=== PATIENT | male | born 1945 | race Caucasian/White ===

== ENCOUNTER 2016-11-14 11:39 | Inpatient (IN) | payer BC, OTHER ==
[2016-11-14 11:51] VITALS: BMI 29.0
[2016-11-14] MEDS ORDERED: dilTIAZem HCL 50 MG/10 ML - 10 ML VIAL ONE (12:10)
[2016-11-14] MEDS ORDERED: dilTIAZem HCL 50 MG/10 ML - 10 ML VIAL IVPUSH ONE ×3 (12:14→15:41)
--- NOTE | 2016-11-14 12:15 | PDOC ---
Attending Attestation - Resident Resident Name: Fernando Mustafa - ED Attending Attestation I have performed the following: I have examined & evaluated the patient, The case was reviewed & discussed with the resident, I agree w/resident's findings & plan, Exceptions are as noted - HPI HPI: 11/14/16 15:28 71-year-old male history HTN, DM presents from urgent care with chest pain, shortness of breath and an abnormal EKG. On arrival the patient is in A. fib with RVR to 160s. Patient reports sternal chest pain that radiates up to his jaw bilaterally. He states the symptoms began yesterday at after he ate dinner and became worse this morning. He has never had similar symptoms before denies a history of atrial fibrillation. Pt states he took ASA "500mg" this morning. Denies fevers, chills, focal weakness or numbness, abdominal pain, nausea, vomiting, diarrhea, diaphoresis, lower extremity edema. - Physicial Exam PE: 11/14/16 15:30 GENERAL: Awake, alert, and fully oriented, in no acute distress HEAD: No signs of trauma EYES: PERRLA, EOMI, sclera anicteric, conjunctiva clear ENT: Auricles normal inspection, hearing grossly normal, nares patent, oropharynx clear without exudates. Moist mucosa NECK: Normal ROM, supple, no lymphadenopathy, JVD, or masses LUNGS: Breath sounds equal, clear to auscultation bilaterally. No wheezes, and no crackles HEART: tachy to 166, irregularly irregular, normal S1 and S2, no murmurs, rubs or gallops ABDOMEN: Soft, nontender, normoactive bowel sounds. No guarding, no rebound. No masses EXTREMITIES: Normal range of motion, no edema. No clubbing or cyanosis. No cords, erythema, or tenderness NEUROLOGICAL: Normal speech, cranial nerves intact, negative pronator drift, 5/ 5 strength in all 4 extremities, normal sensation to light touch in all 4 extremities, normal cerebellar exam, normal gait, normal reflexes and tone SKIN: Warm, Dry, normal turgor, no rashes or lesions noted. - Medical Decision Making 11/14/16 15:31 71-year-old male presents with new onset A. fib with RVR. Heart rate decreased from 160s to 130s with 5 mg of IV diltiazem. Patient was given 30 mg of diltiazem PO. His heart rate increased again to the 160s. He was given another dose of 10 mg of diltiazem again with a decrease in heart rate to 120s/130s. We consulted cardiology who recommended a diltiazem drip. The patient has been accepted for admission to the ICU. The diltiazem drip has been started at 5 mg per hour. Heart Score/ECG Review #1 11/14/16 17:15 Twelve-lead EKG was performed and reviewed by me. Atrial fibrillation, rate 153. Normal axis. T-wave inversions in lead 1, aVL, V5, V6, 2, 3, aVF. No ST elevations
[2016-11-14] MEDS ORDERED: dilTIAZem HCL 30 MG TABLET (FP) PO ONE (12:33)
[2016-11-14] MEDS ORDERED: SODIUM CHLORIDE 1,000 ML IV STA (12:34)
[2016-11-14 12:36] LABS: BASOPHIL 0.4 % (0-2.0); EOSINOPHIL 0.3 % (0-4.5); MCH 31.9 pg (25.7-33.7); MCHC 33.7 g/dl (32.0-35.9); MEAN CELL VOLUME 94.6 fl (80-96); MEAN PLT VOLUME 8.1 fl (7.5-11.1); NEUTROPHILS 80.1 % (42.8-82.8); PLATELET COUNT 175 K/MM3 (134-434); RDW 14.7 % (11.9-15.9)
[2016-11-14] MEDS ORDERED: ASPIRIN 81 MG CHEWABLE TABLETS PO ONE (12:36)
[2016-11-14] MEDS ORDERED: dilTIAZem HCL 30 MG TABLET (FP) ONE (12:42)
[2016-11-14] MEDS ORDERED: ASPIRIN 81 MG CHEWABLE TABLETS ONE (12:42)
--- NOTE | 2016-11-14 12:45 | PDOC ---
History of Present Illness - General Chief Complaint: Chest Pain Stated Complaint: CHEST PAIN (PCP SENT: ABNORMAL EKG) Time Seen by Provider: 11/14/16 11:59 - History of Present Illness Initial Comments: 11/14/16 12:39 The patient is a 71 year old male with a history of HTN, DM who presents from urgent care for evaluation of chest pain and SOB with an abnormal EKG. The patient reports onset of stabbing chest pain beginning 1 day ago while he was resting after eating dinner with associated SOB. He reports that he has never had the pain before and presented to urgent care for evaluation who then sent him to the ED given an abnormal EKG. He states that he had a stress test 5 years ago, but does not know the results of it. He denies fevers, chills, headache, abdominal pain, or changes with urination or bowel movements. Past History - Past Medical History Allergies/Adverse Reactions: Allergies Allergy/AdvReac Type Severity Reaction Status Date / Time No Known Allergies Allergy Verified 11/14/16 11:51 Home Medications: Ambulatory Orders Aspirin [ASA -] 81 mg PO DAILY 11/14/16 Glipizide Xl [Glucotrol Xl -] 10 mg PO DAILY@0700 11/14/16 Lisinopril/Hydrochlorothiazide [Lisinopril-Hctz 20-25 mg Tab] 1 tab PO DAILY 11/21 Metformin HCl [Metformin HCl ER] 1,000 mg PO DAILY 11/14/16 Cardiac Disorders: Yes Diabetes: Yes HTN: Yes - Surgical History Abdominal Surgery: (PROSTATE, FISTULA) - Suicide/Smoking/Psychosocial Hx Smoking History: Never smoked Information on smoking cessation initiated: No Hx Alcohol Use: No Drug/Substance Use Hx: No Substance Use Type: None Review of Systems - Review of Systems Comments:: 11/14/16 12:45 Constitutional: No fevers, chills, fatigue, malaise HEENT: No Rhinorrhea, nasal congestion, visual changes Cardiovascular: Chest pain. No syncope, palpitations, lightheadedness Respiratory: SOB. No Cough, Hemoptysis, Gastrointestinal: No Abdominal pain, Nausea, Vomiting, Constipation, Diarrhea, Melena Genitourinary: No Dysuria, Frequency, Urgency, Hesitancy, Hematuria, Flank pain Musculoskeletal: No Myalgia, arthralgia Skin: No rashes, bruising, pallor Neurologic: No Headache, Dizziness, Numbness, Weakness, or Tingling *Physical Exam - Vital Signs Last Vital Signs Temp Pulse Resp BP Pulse Ox 98.6 F 142 H 22 104/75 96 11/14/16 12:22 11/14/16 12:25 11/14/16 12:22 11/14/16 12:22 11/14/16 12:25 - Physical Exam Comments: 11/14/16 12:46 General Appearance: Nourished. No Apparent Distress HEENT: EOMI, SHANTELL. No Pharyngeal Erythema, Tonsillar Exudate, Tonsillar Erythema Neck: No Cervical Lymphadenopathy Respiratory/Chest: Lungs Clear, Normal Breath Sounds. No Crackles, Rales, Rhonchi, Wheezing Cardiovascular: Irregularly irregular. Tachycardic. No Murmur, Gallops, Rubs Gastrointestinal/Abdominal: Normal Bowel Sounds, Soft. No Guarding, Rebound, Tenderness Musculoskeletal: No CVA Tenderness Extremity: Normal Capillary Refill Integumentary: Normal Color, Dry, Warm Neurologic: Fully Oriented, Alert, Normal Mood/Affect, Normal Response, ED Treatment Course - LABORATORY CBC & Chemistry Diagram: 11/14/16 12:20 11/14/16 12:20 - Medications Given in the ED: ED Medications Discontinued Medications Generic Name Dose Route Start Last Admin Trade Name Freq PRN Reason Stop Dose Admin Diltiazem HCl 10 mg 11/14/16 12:14 11/14/16 12:17 Cardizem Injection - IVPUSH 11/14/16 12:15 10 mg NOW ONE Administration Medical Decision Making - Medical Decision Making 11/14/16 12:47 The patient is a 71 year old male with a history of HTN, DM who presents from urgent care for evaluation of chest pain and SOB with an abnormal EKG. Differential includes but is not limited to: ACS, Afib, Aflutter, Pneumonia, metabolic derangement. EKG done here in triage demonstrates afib with RVR with a rate of 170s. Given the patient's EKG, it appears his symptoms are due to afib with RVR and we will treat accordingly with 10mg IV Diltiazem. We will give him a 1L ns bolus and continue to closely monitor his rate and blood pressure. We will send a cbc, cmp, inr, and troponin as well as obtain a chest plain film to further evaluate. 11/14/16 13:48 Cbc, cmp, troponin are unremarkable. Chest plain film is unremarkable as read by our radiologist. Patient continues to have a heart rate of 120s after 20mg of IV Diltiazem, 30mg of PO Diltiazem and 1 L of ns bolus. We discussed the case with Dr. Vo for admission. We will consult with cardiology to determine if he requires a diltiazem drip and ICU admission for management. Cardiology has been paged and we are awaiting callback. 11/14/16 14:43 Discussed the case with Cardiology and will place the patient on a diltiazem drip and admit to the ICU. Cardiology will follow while the patient is admitted. We discussed the case with the ICU team who is aware of the case. We discussed the results and plan with the patient who voiced understanding and is agreeable with the plan. *DC/Admit/Observation/Transfer Diagnosis at time of Disposition: Atrial fibrillation with rapid ventricular response - Discharge Dispostion Condition at time of disposition: Guarded Admit: Yes
[2016-11-14 12:50] LABS: INR 0.98 (0.82-1.09); PROTHROMBIN TIME (PATIENT) 10.8 SEC (9.98-11.88)
[2016-11-14 12:53] LABS: ACTIVATED PTT 28.2 SECONDS (26.9-34.4)
[2016-11-14 12:59] LABS: ALBUMIN 3.7 g/dl (3.4-5.0); ANION GAP 9 (8-16); CALCIUM 8.7 mg/dL (8.5-10.1); CO2 27 mmol/L (21-32); CREATININE 1.2 mg/dL (0.7-1.3); GLUCOSE,RANDOM 182 mg/dL (74-106); SGPT/ALT 32 U/L (12-78)
[2016-11-14 13:02] LABS: ALK PHOS 41 U/L (45-117); BILIRUBIN,TOTAL 0.5 mg/dL (0.2-1.0); CPK 87 IU/L (39-308); TOT PROT 7.1 g/dl (6.4-8.2); TROPONIN I < 0.02 ng/ml (0.00-0.05)
[2016-11-14 13:05] LABS: SGOT/AST 32 U/L (15-37)
[2016-11-14 14:53] LABS: URINE APPEARANCE CLEAR; URINE BILIRUBIN NEGATIVE (NEGATIVE); URINE BLOOD 1+ (NEGATIVE); URINE COLOR STRAW; URINE GLUCOSE (UA) 3+ (NEGATIVE); URINE KETONE NEGATIVE (NEGATIVE); URINE NITRITE NEGATIVE (NEGATIVE); URINE PROTEIN NEGATIVE (NEGATIVE); URINE UROBILINOGEN NEGATIVE mg/dL (0.2-1.0)
[2016-11-14 14:57] LABS: URINE RBC 2 /hpf (0-3); URINE WBC 1 /hpf (3-5)
[2016-11-14] MEDS ORDERED: DILTIAZEM INJECTION 125 MG in DEXTROSE 5%-WATER - 100 ML IVPB SCH (15:15)
[2016-11-14] MEDS ORDERED: HEPARIN NA (PORCINE) 5,000 UNITS/ML 1ML VIAL IVPUSH PRN ×2 (15:47)
[2016-11-14] MEDS ORDERED: HEPARIN NA (PORCINE) 5,000 UNITS/ML 1ML VIAL IVPUSH ONE (15:49)
--- NOTE | 2016-11-14 15:50 | CON.CARD ---
Consult Consult Specialty:: Cardiology Referred by:: Dr. 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 Pt states that his symptoms started yesterday afternoon with chest pain with inspiration and difficulty taking a deep breath. he was seen in pmd office for these symptoms today and found to have newly dx afib with rvr thus sent to ER. Pt seen and examined in ER. he has gotten IV cardizem 10mg x 2 , po cardizem 30 x1 and cardizem gtt just started. Pt states he is still having severe chest pain only when taking deep breaths and feels sob as he is unable to take deep breaths. no LE edema. No previous chest pain or sob prior to yesterday. no lightheadedness, dizziness, syncope, near syncope. - History Source History Provided By: Patient, Medical Record Limitations to Obtaining History: No Limitations - Past Medical History Cardio/Vascular: Yes: HTN, Hyperlipdemia Endocrine: Yes: Diabetes Mellitus - Alcohol/Substance Use Hx Alcohol Use: No - Smoking History Smoking history: Current every day smoker - Social History ADL: Independent History of Recent Travel: No Home Medications - Allergies Allergies/Adverse Reactions: Allergies Allergy/AdvReac Type Severity Reaction Status Date / Time No Known Allergies Allergy Verified 11/14/16 11:51 - Home Medications Home Medications: Ambulatory Orders Aspirin [ASA -] 81 mg PO DAILY 11/14/16 Glipizide Xl [Glucotrol Xl -] 10 mg PO DAILY@0700 11/14/16 Lisinopril/Hydrochlorothiazide [Lisinopril-Hctz 20-25 mg Tab] 1 tab PO DAILY 11/21 Metformin HCl [Metformin HCl ER] 1,000 mg PO DAILY 11/14/16 Family Disease History - Family Disease History Family History: Denies Review of Systems - Review of Systems Constitutional: denies: No Symptoms, Chills, Diaphoresis, Fever, Lethargy, Loss of Appetite, Malaise, Night Sweats, Unintentional Wgt. Loss, Weakness, Other Eyes: denies: No Symptoms, Blind Spots, Blurred Vision, Double Vision, Eye Pain , Floaters, Photophobia, Recent Change in Vision, Other HENT: denies: No Symptoms, Difficult Swallowing, Ear Discharge, Ear Pain, Epistaxis, Gingival Bleeding, Hearing Loss, Mouth Swelling, Nasal Congestion, Ocular Prosthesis, Throat Pain, Toothache, Ringing in Ears, Other Neck: denies: No Symptoms, Decreased ROM, Lumps, Pain on Movement, Stiffness, Swollen Glands, Tenderness, Other Cardiovascular: reports: Chest Pain, Palpitations, Shortness of Breath. denies : No Symptoms, Edema, Other Respiratory: denies: No Symptoms, Cough, Exercise Intolerance, Hemoptysis, Orthopnea, PND, Snoring, SOB, SOB on Exertion, Wheezing, Other Gastrointestinal: denies: No Symptoms, Abdominal Pain, Bloating, Constipation, Diarrhea, Dysphagia, Indigestion, Melena, Nausea, Rectal Bleeding, Vomiting, Vomiting Blood, Other Genitourinary: denies: No Symptoms, Burning, Discharge, Dysuria, Flank Pain, Frequency, Hematuria, Incontinence, Lesions, Menses, Pain, Testicular Mass, Testicular Pain, Testicular Swelling, Urgency, Vaginal Bleeding, Other Breasts: denies: No Symptoms Reported, See HPI, Breast Implants, Discharge from Nipple, Lumps, Pain, Skin Changes, Other Musculoskeletal: denies: No Symptoms, Back Pain, Crepitus, Decreased ROM, Extremity Pain, Joint Pain, Joint Swelling, Muscle Pain, Muscle Cramps, Muscle Weakness, Other Integumentary: denies: No Symptoms, Blister, Bruising, Change in Color, Eczema, Erythema, Incision, Lesions, Lump, Pallor, Pruritis, Rash, Wound, Other Neurological: denies: No Symptoms, Change in LOC, Change in Speech, Confusion, Dizziness, Headache, Incoordination, Numbness, Parasthesia, Pre-Existing Deficit , Seizure, Syncope, Tremors, Unsteady Gait, Weakness, Other Endocrine: denies: No Symptoms, Excessive Sweating, Flushing, Increased Hunger, Increased Thirst, Intolerance to Cold, Intolerance to Heat, Unexplained Weight Gain, Unexplained Weight Loss, Other Hematology/Lymphatic: denies: No Symptoms, Easily Bruised, Excessive Bleeding, Swollen Glands, Other Psychiatric: denies: No Symptoms, Altered Sleep Pattern, Anxiety, Depression, Hallucinations, Panic, Paranoia, Suicidal, Other - Risk Factors Known Risk Factors: Yes: Diabetes Mellitus, Hypercholesterolemia, Hypertension Vital Signs: Vital Signs Temperature 98.6 F 11/14/16 12:22 Pulse Rate 128 H 11/14/16 15:41 Respiratory Rate 18 11/14/16 14:06 Blood Pressure 120/73 11/14/16 15:41 O2 Sat by Pulse Oximetry (%) 98 11/14/16 13:57 Constitutional: Yes: Calm, Mild Distress, Obese, Pallor Eyes: Yes: Conjunctiva Clear HENT: Yes: Atraumatic, Normocephalic Neck: Yes: Supple, Trachea Midline Respiratory: Yes: Regular, CTA Bilaterally, Other (unable to take deep breathes due to chest pain). No: Rales, Rhonchi, Wheezes Gastrointestinal: Yes: Normal Bowel Sounds, Soft. No: Distention, Tenderness Cardiovascular: Yes: Tachycardia, Pulse Irregular. No: Bradycardia, Gallop, Rub , Varicosities JVD: No Carotid Bruit: No PMI: Non-Displaced Heart Sounds: Yes: S1, S2. No: Split S2, S3, S4, Clicks, Gallop, Rub, Bruit Murmur: No: Systolic Murmur, Diastolic Murmur Extremities: Yes: WNL Edema: No Peripheral Pulses WNL: Yes Peripheral Pulses: 2+ Left Doralis Pedis, 2+ Right Dorsalis Pedis Integumentary: Yes: WNL Neurological: Yes: WNL, Alert, Oriented, Cran Nerves II-XII Intact ...Motor Strength: WNL Psychiatric: Yes: WNL, Alert, Oriented - Other Data Labs, Other Data: INR, PTT INR 0.98 (0.82-1.09) 11/14/16 12:20 EKG-Afib with RVR 153bpm, T inversions and ST depressions V4, V5, V6, I, aVL, II , aVF Echo: Pending, Report Reviewed Imaging - Results Chest X-ray: Report Reviewed, Image Reviewed EKG: Report Reviewed, Image Reviewed Other: Report Reviewed, Image Reviewed (Tele-afib with RVR 130bpm) Assessment/Plan 71 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 Pt states that his symptoms started yesterday afternoon with chest pain with inspiration and difficulty taking a deep breath. he was seen in pmd office for these symptoms today and found to have newly dx afib with rvr thus sent to ER. Pt seen and examined in ER. he has gotten IV cardizem 10mg x 2 , po cardizem 30 x1 and cardizem gtt just started. Pt states he is still having severe chest pain only when taking deep breaths and feels sob as he is unable to take deep breaths. no LE edema. No previous chest pain or sob prior to yesterday. no lightheadedness, dizziness, syncope, near syncope. Newly dx afib with rvr, pleuritic chest pain and sob -evaluate for PE with CTA chest -hold metformin as pt received IV contrast -received 1 liter IVF in ER, can give additional IVF as needed -echo done and reviewed at bedside, no evidence of RV dilatation or dysfunction , grossly normal LV systolic function, insuff TR to evaluate RVSP, possible small pericardial effusion -heparin bolus and gtt started -pulm/icu evaluation, admit to ICU and monitor telemetry for rate control -cardizem gtt started and to be uptitrated -if cardizem insufficient for rate control can use IV Lopressor -BP is stable currently -2 sets of cardiac enzymes wnl at this point, cont to trend serial cardiac enzymes and ekgs -evidence of ischemia seen on ekg, once AFib is controlled will plan for an ischemic work up with either stress test or cardiac cath HTN-adequately controlled -cont cardizem gtt alone for now -if HTN becomes uncontrolled can re-introduce home meds as needed
[2016-11-14] MEDS ORDERED: HEPARIN INFUSION - 500 ML IVPB SCH (16:00)
[2016-11-14 16:47] LABS: CPK 67 IU/L (39-308); TROPONIN I < 0.02 ng/ml (0.00-0.05)
[2016-11-14] MEDS ORDERED: METOPROLOL TARTRATE 5 MG/5 ML VIAL IVPUSH PRN (17:20)
[2016-11-14] MEDS ORDERED: METOPROLOL TARTRATE 25 MG TABLET (FP) PO ONE (17:23)
--- NOTE | 2016-11-14 18:34 | CONSULT ---
Consultation: REQUESTING PROVIDER: CONSULT REQUEST: We have been asked to medically evaluate this patient for ccu a -fib rate control HISTORY OF PRESENT ILLNESS: This is a very pleasant 71 yo M with a PMH of HTN, NIDDMII and past heavy smoking, who presented due to mid sternal CP radiating to b/l jaw, sob and palpitations, found to have new a-fib with rvr 140's . His symptoms started yesterday at 5 PM. CP is new, reproducible and aggravated by deep inspiration. He reports associated dizziness but denies syncope, focal neuro deficits, n/v, h /a. He denies f/c but reports recent tonsilar swelling and throat pain. He denies recent weight change, heat/cold intolerance or LE edema. He had an unremarkable annual at PCP this August. He states his DM is well controlled and he takes his medications on schedule. He denies excessive EtOh consumption or stimulant use. He drinks 1 cup of coffee and 3 cups of tea/day. 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 At baseline he can walk several blocks w/p CP or sob. He reports strong family history of [place] and stroke. In ED patient received IV cardizem 10mg x 2, po cardizem 30 x1. REVIEW OF SYSTEMS: CONSTITUTIONAL: Absent: fever, chills, diaphoresis, generalized weakness, loss of appetite, weight change HEENT: Absent: rhinorrhea, nasal congestion, difficulty swallowing, ear pain, eye pain , visual changes CARDIOVASCULAR: Absent: syncope, peripheral edema RESPIRATORY: Absent: cough, orthopnea, wheezing, stridor, hemoptysis GASTROINTESTINAL: Absent: abdominal pain, abdominal distension, nausea, vomiting, diarrhea, constipation, melena, hematochezia GENITOURINARY: Absent: dysuria, flank pain MUSCULOSKELETAL: Absent: back pain, neck pain SKIN: Absent: rash, itching, pallor HEMATOLOGIC/IMMUNOLOGIC: Absent: easy bleeding, easy bruising ENDOCRINE: Absent: unexplained weight gain, unexplained weight loss, heat intolerance, cold intolerance NEUROLOGIC: Absent: headache, focal weakness or paresthesias PSYCHIATRIC: Absent: anxiety, depression PHYSICAL EXAMINATION Vital Signs - 24 hr 11/14/16 11/14/16 11/14/16 15:41 16:03 17:15 Temperature 98.6 F Pulse Rate 128 H 100 H Pulse Rate [ 122 H Left Apical] Respiratory 18 18 Rate Blood Pressure 120/73 123/79 Blood Pressure 121/83 [Left Arm] O2 Sat by Pulse 100 Oximetry (%) GENERAL: Awake, alert, and fully oriented, in no acute distress. HEAD: Normal with no signs of trauma. EYES: Pupils equal, round and reactive to light, extraocular movements intact, sclera anicteric, conjunctiva clear. No lid lag. EARS, NOSE, THROAT: Ears normal, nares patent, oropharynx clear without exudates. Moist mucous membranes. NECK: supple, moderate thyromegaly, Tender tonsils b/l and slightly enlarged w/ o exudates, no JVD LUNGS: rediced sounds at basees b/l HEART: irregularly irregular, normal S1 and S2 ABDOMEN: Soft, nontender, moderately distended, normoactive bowel sounds, no guarding, no rebound, no masses. MUSCULOSKELETAL: No CVA tenderness. UPPER EXTREMITIES: 2+ pulses, warm, well-perfused. No peripheral edema. LOWER EXTREMITIES: 2+ pulses, warm, well-perfused. No calf tenderness. No peripheral edema. NEUROLOGICAL: Cranial nerves II-XII intact. Normal speech. PSYCHIATRIC: Cooperative. Good eye contact. Appropriate mood and affect. SKIN: Warm, dry Laboratory Results - last 24 hr 11/14/16 15:45 Creatine Kinase 67 Troponin I < 0.02 Active Medications Generic Name Dose Route Start Last Admin Trade Name Freq PRN Reason Stop Dose Admin Aspirin 81 mg 11/15/16 10:00 Asa - PO DAILY KEO Glipizide 10 mg 11/15/16 07:00 Glucotrol Xl - PO DAILY@0700 KEO Heparin Sodium (Porcine) 1,000 unit 11/14/16 15:47 Heparin - IVPUSH PRN PRN Heparin Heparin Sodium (Porcine) 5,000 unit 11/14/16 15:47 Heparin - IVPUSH PRN PRN Heparin Diltiazem HCl 125 mg/ Dextrose 125 mls @ 5 mls/hr 11/14/16 15:15 11/14/16 15:41 IVPB 5 mls/hr TITR KEO Administration Protocol 5 MG/HR Heparin Sodium/Dextrose 500 mls @ 20 mls/hr 11/14/16 16:00 11/14/16 16:01 Heparin Infusion - IVPB 20 mls/hr TITR KEO Administration Protocol 1,000 UNITS/HR Sodium Chloride 1,000 mls @ 100 mls/hr 11/14/16 18:45 Normal Saline - IV ASDIR KEO Metoprolol Tartrate 5 mg 11/14/16 17:20 Lopressor Injection - IVPUSH Q4H PRN HYPERTENSION Metoprolol Tartrate 25 mg 11/14/16 22:00 Lopressor - PO BID KEO ASSESSMENT/PLAN: This is a very pleasant 71 yo M with a PMH of HTN, NIDDMII and past heavy smoking, who presented due to mid sternal CP radiating to b/l jaw, sob and palpitations, found to have new a-fib with rvr 140's . Neuro -aaox3 Pulm -history of smoking -sob associated with pleuritic CP, a fib -CTA negative for PE -O2 sats adequate CV *New afib with rvr -CHADSVASC =3; a/c discussed with patient, on hep gtt -Bedside TTE: no evidence of RV dilatation or dysfunction, grossly normal LV systolic function, insuff TR to evaluate RVSP, possible small pericardial effusion -cardizem gtt; titrate for rate control <110 bpm; consider IV Lopressor if insufficient -asa 81 D -f/u TFT's, Lipid panel, A1c -Trop -x2; trend -EKG no evidence of acs -anticipate stress test vs carth once rate controlled -cardio consult appreciated *HTN -controlled on cardizem; hold home meds *HLD -glipizide Endocrine *NIDDM -hold metformin in setting of recently administered IV contrast -IV hydration -ISS BGM TIDAC FEN NS@ 100 lytes stable (monotor mag, phos) Diabetic Na restricted diet Hep, diet Dispo: We will continue to follow the patient. Thank you for this consultative opportunity. Problem List - Problems (1) Atrial fibrillation with RVR Code(s): I48.91 - UNSPECIFIED ATRIAL FIBRILLATION (2) HTN (hypertension) Code(s): I10 - ESSENTIAL (PRIMARY) HYPERTENSION (3) HLD (hyperlipidemia) Code(s): E78.5 - HYPERLIPIDEMIA, UNSPECIFIED (4) Diabetes mellitus Code(s): E11.9 - TYPE 2 DIABETES MELLITUS WITHOUT COMPLICATIONS (5) Chest pain made worse by breathing Code(s): R07.1 - CHEST PAIN ON BREATHING Visit type - Emergency Visit Emergency Visit: Yes ED Registration Date: 11/14/16 Care time: The patient presented to the Emergency Department on the above date and was hospitalized for further evaluation of their emergent condition. - New Patient This patient is new to me today: Yes Date on this admission: 11/14/16 - Critical Care Critical Care patient: Yes Total Critical Care Time (in minutes): 35 Critical Care Statement: The care of this patient involved high complexity decision making to prevent further life threatening deterioration of the patient 's condition and/or to evaluate & treat vital organ system(s) failure or risk of failure.
[2016-11-14] MEDS: SODIUM CHLORIDE 1,000 ML IV SCH (18:54)
[2016-11-14 19:08] LABS: URINE LEUK ESTERASE Negative (NEGATIVE)
[2016-11-14] MEDS ORDERED: ACETAMINOPHEN 325 MG TABLET (FP) PO PRN (19:24)
[2016-11-14] MEDS ORDERED: morphine CARPU-JECT 4 MG/1 ML DISP.SYRIN IVPUSH ONE (20:35)
--- NOTE | 2016-11-14 20:55 | CONSULT ---
Consult Consult Specialty:: Pulm/CCM Reason for Consultation:: chest pain, afib w/ RVR - History of Present Illness Chief Complaint: SOB, CP, palpitations History of Present Illness: This is 71 yo man with HTN, DM who present w/ 1 day of palpitations, substernal chest pain radiating up neck/jaw with SOB described as someone sitting on my chest. In the ED he was found to afib w/ RVR (HR 153). He was placed on cardizem drip with good results: HR 70s. Heparin drip started given CAD2 score. Serial troponins sent and negative x2. Cardiology consulted. TTE done w/ o RWMA, EF WNL. CTA done: negative for PE. Patient seen in ICU, in sinus rhythm. O2 sat 98% on RA. He denies PATTON/nausea/sick contacts/dizziness/syncope or LOC. States he still has mild SOB and chest pain (7/10). EKG-Afib with RVR 153bpm, T inversions and ST depressions V4, V5, V6, I, aVL, II , aVF CTA: negative for PE CXR: no focal infiltrate - History Source History Provided By: Patient, Medical Record Limitations to Obtaining History: No Limitations - Past Medical History Cardio/Vascular: Yes: HTN, Hyperlipdemia Endocrine: Yes: Diabetes Mellitus - Alcohol/Substance Use Hx Alcohol Use: No - Smoking History Smoking history: Former smoker Have you smoked in the past 12 months: No - Social History ADL: Independent History of Recent Travel: No Home Medications - Allergies Allergies/Adverse Reactions: Allergies Allergy/AdvReac Type Severity Reaction Status Date / Time No Known Allergies Allergy Verified 11/14/16 11:51 - Home Medications Home Medications: Ambulatory Orders Aspirin [ASA -] 81 mg PO DAILY 11/14/16 Glipizide Xl [Glucotrol Xl -] 10 mg PO DAILY@0700 11/14/16 Lisinopril/Hydrochlorothiazide [Lisinopril-Hctz 20-25 mg Tab] 1 tab PO DAILY 11/21 Metformin HCl [Metformin HCl ER] 1,000 mg PO DAILY 11/14/16 Family Disease History - Family Disease History Family Disease History: Heart Disease: Father (CVA), Mother Review of Systems - Review of Systems Constitutional: reports: No Symptoms Eyes: reports: No Symptoms Cardiovascular: reports: Chest Pain, Palpitations, Shortness of Breath Gastrointestinal: reports: No Symptoms Genitourinary: reports: No Symptoms Neurological: reports: No Symptoms Physical Exam Vital Signs: Vital Signs Temperature 98.6 F 11/14/16 16:03 Pulse Rate 100 H 11/14/16 17:15 Respiratory Rate 18 11/14/16 19:58 Blood Pressure 123/79 11/14/16 17:15 O2 Sat by Pulse Oximetry (%) 100 11/14/16 19:58 Current Medications Acetaminophen (Tylenol -) 650 mg PO Q6H PRN PRN Reason: FEVER OR PAIN Aspirin (Asa -) 81 mg PO DAILY [facility] Glipizide (Glucotrol Xl -) 10 mg PO DAILY@0700 [facility] Heparin Sodium (Porcine) (Heparin -) 1,000 unit IVPUSH PRN PRN PRN Reason: Heparin Heparin Sodium (Porcine) (Heparin -) 5,000 unit IVPUSH PRN PRN PRN Reason: Heparin Diltiazem HCl 125 mg/ Dextrose 125 mls @ 5 mls/hr IVPB TITR [facility]; 5 MG/HR PRN Reason: Protocol Last Admin: 11/14/16 15:41 Dose: 5 mls/hr Heparin Sodium/Dextrose (Heparin Infusion -) 500 mls @ 20 mls/hr IVPB TITR KE[facility] ; 1,000 UNITS/HR PRN Reason: Protocol Last Admin: 11/14/16 16:01 Dose: 20 mls/hr Sodium Chloride (Normal Saline -) 1,000 mls @ 100 mls/hr IV ASDIR [facility] Last Admin: 11/14/16 18:54 Dose: 100 mls/hr Metoprolol Tartrate (Lopressor Injection -) 5 mg IVPUSH Q4H PRN PRN Reason: HYPERTENSION Metoprolol Tartrate (Lopressor -) 25 mg PO BID [facility] Constitutional: Yes: Well Nourished, No Distress, Calm Eyes: Yes: EOM Intact HENT: Yes: Normocephalic Neck: Yes: Trachea Midline Cardiovascular: Yes: Regular Rate and Rhythm, S1, S2 Respiratory: Yes: CTA Bilaterally Gastrointestinal: Yes: Normal Bowel Sounds, Soft, Abdomen, Obese Musculoskeletal: Yes: WNL Edema: No Labs: CBCD WBC 9.0 K/mm3 (4.0-10.0) 11/14/16 12:20 RBC 3.98 M/mm3 (4.00-5.60) L 11/14/16 12:20 Hgb 12.7 GM/dL (11.7-16.9) 11/14/16 12:20 Hct 37.7 % (35.4-49) 11/14/16 12:20 MCV 94.6 fl (80-96) 11/14/16 12:20 MCHC 33.7 g/dl (32.0-35.9) 11/14/16 12:20 RDW 14.7 % (11.9-15.9) 11/14/16 12:20 Plt Count 175 K/MM3 (134-434) 11/14/16 12:20 MPV 8.1 fl (7.5-11.1) 11/14/16 12:20 CMP Sodium 140 mmol/L (136-145) 11/14/16 12:20 Potassium 4.3 mmol/L (3.5-5.1) 11/14/16 12:20 Chloride 104 mmol/L (98-107) 11/14/16 12:20 Carbon Dioxide 27 mmol/L (21-32) 11/14/16 12:20 Anion Gap 9 (8-16) 11/14/16 12:20 BUN 28 mg/dL (7-18) H 11/14/16 12:20 Creatinine 1.2 mg/dL (0.7-1.3) 11/14/16 12:20 Creat Clearance w eGFR 59.35 (>60) 11/14/16 12:20 Random Glucose 182 mg/dL (74-106) H 11/14/16 12:20 Calcium 8.7 mg/dL (8.5-10.1) 11/14/16 12:20 Total Bilirubin 0.5 mg/dL (0.2-1.0) 11/14/16 12:20 AST 32 U/L (15-37) 11/14/16 12:20 ALT 32 U/L (12-78) 11/14/16 12:20 Alkaline Phosphatase 41 U/L (45-117) L 11/14/16 12:20 Total Protein 7.1 g/dl (6.4-8.2) 11/14/16 12:20 Albumin 3.7 g/dl (3.4-5.0) 11/14/16 12:20 CARDIAC ENZYMES Creatine Kinase 67 IU/L (39-308) 11/14/16 15:45 Troponin I < 0.02 ng/ml (0.00-0.05) 11/14/16 15:45 Imaging - Results Chest X-ray: Report Reviewed, Image Reviewed (no focal infiltrate) Cat Scan: Report Reviewed, Image Reviewed (negative for PE) Problem List - Problems (1) Atrial fibrillation with RVR Code(s): I48.91 - UNSPECIFIED ATRIAL FIBRILLATION (2) Chest pain made worse by breathing Code(s): R07.1 - CHEST PAIN ON BREATHING (3) Diabetes mellitus Code(s): E11.9 - TYPE 2 DIABETES MELLITUS WITHOUT COMPLICATIONS (4) HLD (hyperlipidemia) Code(s): E78.5 - HYPERLIPIDEMIA, UNSPECIFIED (5) HTN (hypertension) Code(s): I10 - ESSENTIAL (PRIMARY) HYPERTENSION Assessment/Plan 71 yo man HTN, DM who presented w/ CP, SOB, palpitations found to have newly diagnosed afib w/ RVR. -Cardiology following -Cardizem drip for rate control, transition to po regimen in AM -cont ASA daily -Heparin for afib will need transition to outpatient anticoagulation -trend troponins -incentive spirometry -telemonitoring -daily EKG -insulin control -no indication for GI prophylaxis Jorge L BARRETO Pulm/CCM CCT: 38m
[2016-11-14] MEDS: METOPROLOL TARTRATE 25 MG TABLET (FP) PO SCH (22:02)
[2016-11-15] MEDS: SODIUM CHLORIDE 1,000 ML IV SCH (03:37)
[2016-11-15] MEDS ORDERED: PT OWN MED DRAWER 7, Y5N ONE ×2 (05:48→08:58)
[2016-11-15 06:18] LABS: BASOPHIL 0.3 % (0-2.0); EOSINOPHIL 1.6 % (0-4.5); MCH 32.7 pg (25.7-33.7); MCHC 34.2 g/dl (32.0-35.9); MEAN CELL VOLUME 95.7 fl (80-96); MEAN PLT VOLUME 8.7 fl (7.5-11.1); NEUTROPHILS 57.2 % (42.8-82.8); PLATELET COUNT 171 K/MM3 (134-434); RDW 14.6 % (11.9-15.9); WHITE BLOOD COUNT 6.4 K/mm3 (4.0-10.0)
[2016-11-15 06:41] LABS: ALBUMIN 3.1 g/dl (3.4-5.0); ANION GAP 7 (8-16); CALCIUM 8.1 mg/dL (8.5-10.1); CO2 29 mmol/L (21-32); GLUCOSE,RANDOM 165 mg/dL (74-106); MAGNESIUM 1.9 mg/dL (1.8-2.4)
[2016-11-15 06:53] LABS: ALK PHOS 47 U/L (45-117); BILIRUBIN,TOTAL 0.8 mg/dL (0.2-1.0); CREATININE 1.1 mg/dL (0.7-1.3); SGOT/AST 31 U/L (15-37); SGPT/ALT 41 U/L (12-78); THYROID STIMULATING HORMONE 1.39 uIU/ml (0.358-3.74); TOT PROT 5.9 g/dl (6.4-8.2)
[2016-11-15 06:56] LABS: FREE T4 1.22 ng/dl (0.76-1.16)
[2016-11-15] MEDS ORDERED: glipiZIDE-XL 10 MG TAB.ER.24 (FP) PO SCH (07:00)
[2016-11-15] MEDS ORDERED: ASPIRIN 81 MG CHEWABLE TABLETS ONE (08:59)
--- NOTE | 2016-11-15 09:04 | PN ---
Progress Note, Physician History of Present Illness: seen and examined today in nad. converted to NSR last night. still having chest pain on inspiration, feeling slightly better. - Current Medication List Current Medications: Active Medications Acetaminophen (Tylenol -) 650 mg PO Q6H PRN PRN Reason: FEVER OR PAIN Aspirin (Asa -) 81 mg PO DAILY [facility] Glipizide (Glucotrol Xl -) 10 mg PO DAILY@0700 [facility] Last Admin: 11/15/16 07:32 Dose: 10 mg Heparin Sodium (Porcine) (Heparin -) 1,000 unit IVPUSH PRN PRN PRN Reason: Heparin Heparin Sodium (Porcine) (Heparin -) 5,000 unit IVPUSH PRN PRN PRN Reason: Heparin Heparin Sodium/Dextrose (Heparin Infusion -) 500 mls @ 20 mls/hr IVPB TITR KEO ; 1,000 UNITS/HR PRN Reason: Protocol Last Titration: 11/15/16 06:00 Dose: 1,000 units/hr Sodium Chloride (Normal Saline -) 1,000 mls @ 100 mls/hr IV ASDIR [facility] Last Admin: 11/15/16 03:37 Dose: 100 mls/hr Metoprolol Tartrate (Lopressor Injection -) 5 mg IVPUSH Q4H PRN PRN Reason: HYPERTENSION Metoprolol Tartrate (Lopressor -) 25 mg PO BID [facility] Last Admin: 11/14/16 22:02 Dose: 25 mg - Objective Vital Signs: Vital Signs Temperature 98.5 F 11/15/16 08:22 Pulse Rate 81 11/15/16 08:22 Respiratory Rate 22 11/15/16 08:22 Blood Pressure 123/94 11/15/16 08:22 O2 Sat by Pulse Oximetry (%) 97 11/15/16 08:28 Constitutional: Yes: No Distress, Calm, Obese Eyes: Yes: Conjunctiva Clear, EOM Intact, PERRL HENT: Yes: Atraumatic, Normocephalic Neck: Yes: Supple, Trachea Midline Cardiovascular: Yes: Regular Rate and Rhythm, S1, S2. No: Bradycardia, Tachycardia, Pulse Irregular, Bruit, JVD, Gallop, Murmur, Rub, S3, S4, Varicosities Respiratory: Yes: Regular, CTA Bilaterally. No: Rales, Rhonchi, Wheezes Gastrointestinal: Yes: Normal Bowel Sounds, Soft. No: Distention, Tenderness Musculoskeletal: Yes: WNL Extremities: Yes: WNL Edema: No Peripheral Pulses WNL: Yes Peripheral Pulses: Left Doralis Pedis: 2+, Right Dorsalis Pedis: 2+ Integumentary: Yes: WNL Neurological: Yes: Alert, Oriented, Cran Nerves II-XII Intact Psychiatric: Yes: Alert, Oriented Labs: CBC, BMP 11/15/16 05:00 11/15/16 05:00 INR, PTT INR 0.98 (0.82-1.09) 11/14/16 12:20 - ....Imaging Chest X-ray: Report Reviewed, Image Reviewed EKG: Report Reviewed, Image Reviewed Other: Report Reviewed, Image Reviewed (tele-pafib with rvr, converted to nsr with frequent apcs last night approx 8pm, no sig pauses recorded, no further afib overnight) Assessment/Plan 71 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 Newly dx afib with rvr -converted to NSR overnight spontaneously -no longer on cardizem gtt -cont heparin gtt for now as plan for ischemic work up with cardiac cath then will transition to po AC -cont Metoprolol Tart 25mg bid for now -will have EP evaluate at [facility] -will follow up in office Chest pain and sob-pain pleuritic in nature -CTA chest showed no PE -cardiac enzymes wnl x 2, add on repeat set this am -hold metformin as pt received IV contrast and planned for more contrast with cath -f/up official echo report prelim yesterday showed no evidence of RV dilatation or dysfunction, grossly normal LV systolic function, insuff TR to evaluate RVSP , possible small pericardial effusion -possible pericarditis but will evaluate for obstructive CAD with cardiac cath, he will be transferred to [facility] today -cont heparin gtt for now -cont ASA, bblocker, and add lipitor -if no sig CAD will plan to treat for pericarditis-pt does report a URI approx 2 weeks ago HTN-adequately controlled -cont metoprolol alone for now -if HTN becomes uncontrolled can re-introduce home meds as needed
--- NOTE | 2016-11-15 09:05 | PN ---
Physical Exam: 24H Events -Afib converted sinus -diltiazem gtt weaned off --> started PO SUBJECTIVE: Patient seen and examined in ICU. Continues to have chest pain with inspiration (non-positional, not increased when leaning forward), no SOB. No fever/chills, n/v. OBJECTIVE: Vital Signs Period Temp Pulse Resp BP Sys/Wallace Pulse Ox Last 24 Hr 97.8 F-98.6 F 71-128 16-27 99-123/59-94 97-114 Intake & Output 11/12/16 11/13/16 11/14/16 11/15/16 23:59 23:59 23:59 23:59 Intake Total 1455 Output Total 500 750 Balance -500 705 Weight 81.647 kg 87.543 kg GENERAL: The patient is awake, alert, and fully oriented, in no acute distress. EYES: sclera anicteric, conjunctiva clear ENT: moist mucous membranes LUNGS: CTAB, no wheezes, no crackles, no accessory muscle use. HEART: rrr, normal S1/S2, no murmur, rub or gallop ABDOMEN: Soft, ntnd Lower EXTREMITIES: no edema CBC, BMP 11/15/16 05:00 11/15/16 05:00 Troponin, BNP 11/14/16 11/14/16 12:20 15:45 Troponin I < 0.02 < 0.02 INR 0.98 (0.82-1.09) 11/14/16 12:20 Imaging: Chest CT/CTA 11/14/2016: -No e/o PE in main pulmonary artery, segmental and subsegmental branches, bilaterally -Mild bibasal atelectatic changes extending to the posterior costophrenic angles with mild pleural thickening and probable infiltrates. No pneumothorax or pleural effusion identified. -No cardiomegaly, minimal cardiac thickening versus a trace of pericardial effusion TTE 11/15/2016: LV and RV not well visualized, LA moderately dilated, mild pericardial effusion, EF 61.2% Active Medications Acetaminophen (Tylenol -) 650 mg PO Q6H PRN PRN Reason: FEVER OR PAIN Aspirin (Asa -) 81 mg PO DAILY [facility] Glipizide (Glucotrol Xl -) 10 mg PO DAILY@0700 [facility] Last Admin: 11/15/16 07:32 Dose: 10 mg Heparin Sodium (Porcine) (Heparin -) 1,000 unit IVPUSH PRN PRN PRN Reason: Heparin Heparin Sodium (Porcine) (Heparin -) 5,000 unit IVPUSH PRN PRN PRN Reason: Heparin Heparin Sodium/Dextrose (Heparin Infusion -) 500 mls @ 20 mls/hr IVPB TITR KEO ; 1,000 UNITS/HR PRN Reason: Protocol Last Titration: 11/15/16 06:00 Dose: 1,000 units/hr Sodium Chloride (Normal Saline -) 1,000 mls @ 100 mls/hr IV ASDIR [facility] Last Admin: 11/15/16 03:37 Dose: 100 mls/hr Metoprolol Tartrate (Lopressor Injection -) 5 mg IVPUSH Q4H PRN PRN Reason: HYPERTENSION Metoprolol Tartrate (Lopressor -) 25 mg PO BID [facility] Last Admin: 11/14/16 22:02 Dose: 25 mg ASSESSMENT/PLAN: 71 yo M with a PMH of HTN, NIDDM, former smoker who presented with mid-sternal CP radiating to jaw, SOB, and chest palpitations and found to have newly diagnosed Afib with rvr 160's. Converted to NSR on diltiazem gtt. To be transferred to [facility] for cardiac cath. #New onset afib with rvr (CHADSVASC = 3) -cardiology consulted -d/c diltiazem gtt -continue metoprolol 25mg bid -continue heparin gtt #pleuritic chest pain CTA neg for PE, pericarditis on differential -Continue ASA -Start lipitor #NIDDM -hold home metformin -continue glipizide -ISS BGM TIDAC #FEN -NS@ 100 -lytes stable (monotor mag, phos) -NPO for cardiac cath #PPX -DVT - on heparin gtt #Dispo: transfer to [facility] for cardiac cath d/w with Dr. Favian López MD PGY-1 Visit type - Emergency Visit Emergency Visit: No - New Patient This patient is new to me today: Yes Date on this admission: 11/15/16 - Critical Care Critical Care patient: Yes Total Critical Care Time (in minutes): 35 Critical Care Statement: The care of this patient involved high complexity decision making to prevent further life threatening deterioration of the patient 's condition and/or to evaluate & treat vital organ system(s) failure or risk of failure.
--- NOTE | 2016-11-15 09:08 | PN ---
Progress Note, Physician - Current Medication List Current Medications: Active Medications Acetaminophen (Tylenol -) 650 mg PO Q6H PRN PRN Reason: FEVER OR PAIN Aspirin (Asa -) 81 mg PO DAILY [facility] Glipizide (Glucotrol Xl -) 10 mg PO DAILY@0700 [facility] Last Admin: 11/15/16 07:32 Dose: 10 mg Heparin Sodium (Porcine) (Heparin -) 1,000 unit IVPUSH PRN PRN PRN Reason: Heparin Heparin Sodium (Porcine) (Heparin -) 5,000 unit IVPUSH PRN PRN PRN Reason: Heparin Heparin Sodium/Dextrose (Heparin Infusion -) 500 mls @ 20 mls/hr IVPB TITR KEO ; 1,000 UNITS/HR PRN Reason: Protocol Last Titration: 11/15/16 06:00 Dose: 1,000 units/hr Sodium Chloride (Normal Saline -) 1,000 mls @ 100 mls/hr IV ASDIR [facility] Last Admin: 11/15/16 03:37 Dose: 100 mls/hr Metoprolol Tartrate (Lopressor Injection -) 5 mg IVPUSH Q4H PRN PRN Reason: HYPERTENSION Metoprolol Tartrate (Lopressor -) 25 mg PO BID [facility] Last Admin: 11/14/16 22:02 Dose: 25 mg - Objective Vital Signs: Vital Signs Temperature 98.5 F 11/15/16 08:22 Pulse Rate 81 11/15/16 08:22 Respiratory Rate 22 11/15/16 08:22 Blood Pressure 123/94 11/15/16 08:22 O2 Sat by Pulse Oximetry (%) 97 11/15/16 08:28 Labs: CBC, BMP 11/15/16 05:00 11/15/16 05:00 INR, PTT INR 0.98 (0.82-1.09) 11/14/16 12:20
[2016-11-15 09:33] LABS: CPK 47 IU/L (39-308)
[2016-11-15 09:34] LABS: TROPONIN I < 0.02 ng/ml (0.00-0.05)
[2016-11-15] MEDS: METOPROLOL TARTRATE 25 MG TABLET (FP) PO SCH (09:35)
--- NOTE | 2016-11-15 09:52 | HP ---
Admitting History and Physical - Primary Care Physician PCP: Mat Garza - Admission Chief Complaint: palpitations .chest discomfort History of Present Illness: 71 ys old male admitted in ICU for Afib with RVR He initially went to his OMD office yesterday with c/o chest discomfort and palpitations , but PMD not in the office and so he went to Urgent Care - where doctor there called ambulance and sent him to [facility] for rapid Afib in 160's. He was given Cardizem IV push and placed on Heparin infusion. Now in ICU-- rate under control Pt sitting up in chair no distress Seen by Plug Shaper Hand yesterday and today-- decision made to transfer to [facility] for cardiac cath. History Source: Patient Limitations to Obtaining History: No Limitations - Past Medical History Cardiovascular: Yes: HTN, Hyperlipdemia Endocrine: Yes: Diabetes Mellitus - Smoking History Smoking history: Former smoker Have you smoked in the past 12 months: No - Alcohol/Substance Use Hx Alcohol Use: No - Social History ADL: Independent History of Recent Travel: No Home Medications - Allergies Allergies/Adverse Reactions: Allergies Allergy/AdvReac Type Severity Reaction Status Date / Time No Known Allergies Allergy Verified 11/14/16 11:51 - Home Medications Home Medications: Ambulatory Orders Aspirin [ASA -] 81 mg PO DAILY 11/14/16 Glipizide Xl [Glucotrol Xl -] 10 mg PO DAILY@0700 11/14/16 Lisinopril/Hydrochlorothiazide [Lisinopril-Hctz 20-25 mg Tab] 1 tab PO DAILY 11/21 Metformin HCl [Metformin HCl ER] 1,000 mg PO DAILY 11/14/16 Family Disease History - Family Disease History Family Disease History: Heart Disease: Father (CVA), Mother Review of Systems - Review of Systems Constitutional: denies: Chills, Fever Cardiovascular: reports: Chest Pain, Palpitations. denies: Shortness of Breath Physical Examination Vital Signs: Vital Signs Temperature 98.5 F 11/15/16 08:22 Pulse Rate 81 11/15/16 08:22 Respiratory Rate 22 11/15/16 08:22 Blood Pressure 123/94 11/15/16 08:22 O2 Sat by Pulse Oximetry (%) 97 11/15/16 08:28 Constitutional: Yes: No Distress, Calm Cardiovascular: Yes: Pulse Irregular Respiratory: Yes: CTA Bilaterally Gastrointestinal: Yes: Normal Bowel Sounds, Soft, Abdomen, Obese. No: Distention, Tenderness Edema: No Psychiatric: Yes: Alert, Oriented Labs: CBC, BMP 11/15/16 05:00 11/15/16 05:00 Imaging - Results Chest X-ray: Image Reviewed (negative for infiltrates and congestion) Cat Scan: Report Reviewed (No PE) EKG: Image Reviewed (Afib) Problem List - Problems (1) Atrial fibrillation with RVR Code(s): I48.91 - UNSPECIFIED ATRIAL FIBRILLATION (2) Diabetes mellitus Code(s): E11.9 - TYPE 2 DIABETES MELLITUS WITHOUT COMPLICATIONS (3) HLD (hyperlipidemia) Code(s): E78.5 - HYPERLIPIDEMIA, UNSPECIFIED (4) HTN (hypertension) Code(s): I10 - ESSENTIAL (PRIMARY) HYPERTENSION (5) Chest pain Code(s): R07.9 - CHEST PAIN, UNSPECIFIED Assessment/Plan PLAN on Heparin infusion rate is controlled Now NPO for cardiac cath continue with meds HCP is his Niece Pt will be transferred to [facility] for further management Will need to follow up with DR Horne in the office upon discharge
--- NOTE | 2016-11-15 09:52 | DS ---
Physical Examination Vital Signs: Vital Signs Temperature 98.5 F 11/15/16 08:22 Pulse Rate 81 11/15/16 08:22 Respiratory Rate 22 11/15/16 08:22 Blood Pressure 123/94 11/15/16 08:22 O2 Sat by Pulse Oximetry (%) 97 11/15/16 08:28 Labs: CBC, BMP 11/15/16 05:00 11/15/16 05:00 Discharge Summary Reason For Visit: ATRIAL FIB WITH RVR Current Active Problems Atrial fibrillation with RVR (Acute) Chest pain made worse by breathing (Acute) Diabetes mellitus (Acute) HLD (hyperlipidemia) (Acute) HTN (hypertension) (Acute) Hospital Course: see H& P Condition: Guarded - Home Medications Comprehensive Discharge Medication List: Ambulatory Orders Aspirin [ASA -] 81 mg PO DAILY 11/14/16 Glipizide Xl [Glucotrol Xl -] 10 mg PO DAILY@0700 11/14/16 Lisinopril/Hydrochlorothiazide [Lisinopril-Hctz 20-25 mg Tab] 1 tab PO DAILY 11/21 Metformin HCl [Metformin HCl ER] 1,000 mg PO DAILY 11/14/16
[2016-11-15] MEDS ORDERED: ASPIRIN 81 MG CHEWABLE TABLETS PO SCH (10:00)
[2016-11-15 10:26] VITALS: BP 128/74; PULSE 76; TEMP 99
--- NOTE | 2016-11-15 11:43 | PN ---
Teaching Attending Note Name of Resident: Fadumo López ATTENDING PHYSICIAN STATEMENT I saw and evaluated the patient. I reviewed the resident's note and discussed the case with the resident. I agree with the resident's findings and plan as documented. SUBJECTIVE: Pt seen and examined in the ICU. Still some chest discomfort but improved from yesterday. No shortness of breath. OBJECTIVE: Last Vital Signs Temp Pulse Resp BP Pulse Ox 99.0 F 76 20 128/74 97 11/15/16 10:00 11/15/16 10:00 11/15/16 10:00 11/15/16 10:00 11/15/16 08:28 Intake & Output 11/12/16 11/13/16 11/14/16 11/15/16 23:59 23:59 23:59 23:59 Intake Total 1455 Output Total 500 750 Balance -500 705 Weight 180 lb 193 lb Gen: NAD at rest Heart: RRR Lung: decreased breath sounds at the bases Abd: soft, nontender Ext: no edema CBC, BMP 11/15/16 05:00 11/15/16 05:00 Active Medications Acetaminophen (Tylenol -) 650 mg PO Q6H PRN PRN Reason: FEVER OR PAIN Aspirin (Asa -) 81 mg PO DAILY [facility] Last Admin: 11/15/16 09:35 Dose: 81 mg Atorvastatin Calcium (Lipitor -) 40 mg PO HS [facility] Glipizide (Glucotrol Xl -) 10 mg PO DAILY@0700 [facility] Last Admin: 11/15/16 07:32 Dose: 10 mg Heparin Sodium (Porcine) (Heparin -) 1,000 unit IVPUSH PRN PRN PRN Reason: Heparin Heparin Sodium (Porcine) (Heparin -) 5,000 unit IVPUSH PRN PRN PRN Reason: Heparin Heparin Sodium/Dextrose (Heparin Infusion -) 500 mls @ 20 mls/hr IVPB TITR KEO ; 1,000 UNITS/HR PRN Reason: Protocol Last Titration: 11/15/16 06:00 Dose: 1,000 units/hr Sodium Chloride (Normal Saline -) 1,000 mls @ 100 mls/hr IV ASDIR [facility] Last Admin: 11/15/16 03:37 Dose: 100 mls/hr Metoprolol Tartrate (Lopressor Injection -) 5 mg IVPUSH Q4H PRN PRN Reason: HYPERTENSION Metoprolol Tartrate (Lopressor -) 25 mg PO BID [facility] Last Admin: 11/15/16 09:35 Dose: 25 mg ASSESSMENT AND PLAN: New Onset Atrial fibrillation now in sinus rhythm Chest Pain r/o Pericarditis HTN DM - continue metoprolol - continue anticoagulation - ASA - send ESR, CRP - for cardiac catheterization
[2016-11-15] MEDS ORDERED: ATORVASTATIN CA 40 MG TABLET (FP) PO SCH (22:00)
--- NOTE | 2016-11-24 10:44 | EKG ---
Test Reason : Blood Pressure : / mmHG Vent. Rate : 153 BPM Atrial Rate : 159 BPM P-R Int : 000 ms QRS Dur : 088 ms QT Int : 280 ms P-R-T Axes : 000 037 227 degrees QTc Int : 447 ms ATRIAL FIBRILLATION WITH RAPID VENTRICULAR RESPONSE BORDERLINE INTRAVENTRICULAR CONDUCTION DELAY ABNORMAL ECG NO PREVIOUS ECGS AVAILABLE FOLLOW UP EKG RECOMMENDED Confirmed by DAYTON ESPINAL MD ([id number]) on 11/14/2016 9:55:19 PM Also confirmed by DAYTON ESPINAL MD ([id number]), continuity editor AMINA HAYWARD ([id number]) on 11/24/2016 10:43:44 AM Referred By: Confirmed By:DAYTON ESPINAL MD
== END 2016-11-15 12:16 | disposition short-term general hospital (02) | DRG 309 ==
LOC: JER 11:39 → MERGE 14:45 → JERBED 14:45 → JICU 17:40
PROVIDERS: ADMIT Internal Medicine; ATTEND Internal Medicine
DX: I48.91 Unspecified atrial fibrillation (principal); I31.3 Pericardial effusion (noninflammatory); R06.02 Shortness of breath; I10 Essential (primary) hypertension; R94.31 Abnormal electrocardiogram [ECG] [EKG]; E11.9 Type 2 diabetes mellitus without complications; E78.5 Hyperlipidemia, unspecified; Z87.891 Personal history of nicotine dependence
CPT/HCPCS: 36415; 71010-TC; 71275-TC; 80053; 80061; 81003; 81015; 82550; 83036; 83721; 83735; 84439; 84443; 84484; 85025; 85610; 85730; 93005; 93010; 93306-TC; 99285-25; J1644

== ENCOUNTER 2019-08-07 18:32 | Inpatient (IN) | payer BC, OTHER ==
[2019-08-07] MEDS ORDERED: SODIUM CHLORIDE 2,722 ML IV ONE (18:48)
[2019-08-07] MEDS ORDERED: VANCOMYCIN 1 GM in D5W (PRE-DOCKED) 1,000 MG/250 ML IVPB ONE (18:49)
[2019-08-07] MEDS ORDERED: PIPERACILLIN/TAZOB 4.5 GM 4.5 GM in DEXTROSE 5%-WATER 100 ML IVPB ONE (18:50)
[2019-08-07] MEDS ORDERED: PIPERACILLIN/TAZOB 4.5 GM 4.5 GM/100 ML BAG IVPB ONE (19:03)
[2019-08-07] MEDS ORDERED: VANCOMYCIN 1 GRAM (PRE-DOCKED) 1,000 MG/250 ML BAG IVPB ONE (19:03)
--- NOTE | 2019-08-07 19:42 | PDOC ---
History of Present Illness - General Chief Complaint: Altered Mental Status Stated Complaint: ALTERED MENTAL STATUS Time Seen by Provider: 08/07/19 19:02 - History of Present Illness Initial Comments: History limited 2/2 altered mental status. Obtained via patient, EMS, chart review Adam Bhakta is a 73 y/o male with reported PMH significant for HTN, DM, a-fib, BIBEMS today after he was found at home feeling weak, hypotensive, altered, possible falls. Pt is A&Ox3 but is unable to answer any additional questions. Unsure who called EMS, but likely for a well check. Per EMS patient home is messy and was found covered in feces. Pt reports that he has fallen a few times over the past few days, but unsure of last fall and whether there was LOC. Pt denies chest pain/back pain/shortness of breath/headache/dizziness. Denies leg swelling. Past History - Medical History Allergies/Adverse Reactions: Allergies Allergy/AdvReac Type Severity Reaction Status Date / Time No Known Drug Allergies Allergy Verified 10/05/14 14:32 Home Medications: Ambulatory Orders Aspirin [Ecotrin] 81 mg PO DAILY 10/05/14 Glipizide 10 mg PO DAILY 10/05/14 Lisinopril/Hydrochlorothiazide [Lisinopril-Hctz 20-25 mg Tab] 1 each PO DAILY 10/05/14 metFORMIN HCL [Metformin HCl ER] 1,000 mg PO DAILY 10/05/14 Levofloxacin [Levaquin] 500 mg PO DAILY #4 tablet 10/07/14 Oxycodone HCl/Acetaminophen [Percocet 5-325 mg Tablet] 2 combo PO Q4H PRN #10 tablet 10/07/14 levoFLOXacin 500 MG IVPB [Levaquin 500 mg Premixed Ivpb -] 500 mg IVPB DAILY #4 bag 10/07/14 Aspirin [ASA -] 81 mg PO DAILY 11/14/16 Glipizide Xl [Glucotrol Xl -] 10 mg PO DAILY@0700 11/14/16 Lisinopril/Hydrochlorothiazide [Lisinopril-Hctz 20-25 mg Tab] 1 tab PO DAILY metFORMIN HCL [Metformin HCl ER] 1,000 mg PO DAILY 11/14/16 Cardiac Disorders: Yes COPD: No Diabetes: Yes HTN: Yes - Surgical History Abdominal Surgery: (PROSTATE, FISTULA) - Psycho-Social/Smoking History Smoking History: Never smoked Have you smoked in the past 12 months: No If you are a former smoker, when did you quit?: 20YRS AGO Review of Systems - Review of Systems Able to Perform ROS?: No (limited 2/2 AMS) Comments:: GENERAL/CONSTITUTIONAL: No fever or chills. No weakness. Reports falls. HEAD, EYES, EARS, NOSE AND THROAT: No change in vision. No change in hearing. No sore throat._ CARDIOVASCULAR: No chest pain or shortness of breath_ RESPIRATORY: Denies cough, hemoptysis_ GASTROINTESTINAL: No nausea, vomiting, diarrhea or constipation._ GENITOURINARY: No dysuria, frequency, or change in urination._ MUSCULOSKELETAL: No joint or muscle swelling or pain. No neck or back pain._ SKIN: No rash_ NEUROLOGIC: No headache, vertigo, loss of consciousness, or change in strength/sensation._ ENDOCRINE: No increased thirst. No abnormal weight change_ ALLERGIC/IMMUNOLOGIC: No hives or skin allergy._ *Physical Exam - Vital Signs Last Vital Signs Temp Pulse Resp BP Pulse Ox 96.8 F L 162 H 18 86/54 L 100 08/07/19 18:34 08/07/19 18:34 08/07/19 18:34 08/07/19 18:34 08/07/19 18:34 - Physical Exam GENERAL: Awake, alert, and oriented to person/place/time, disoriented to situation, in no acute distress_ HEAD: No signs of trauma, normocephalic, atraumatic _ EYES: PERRLA, EOMI, sclera anicteric, conjunctiva clear_ ENT: Hearing grossly normal, nares patent, oropharynx clear without exudates. No uvular deviation. Moist mucosa_ NECK: Normal ROM, supple, no lymphadenopathy, JVD, or masses. No c-spine TTP. LUNGS: No distress, speaks in full sentences, clear to auscultation bilaterally _ HEART: tachycardia, irregular, normal S1 and S2, no murmurs appreciated, peripheral pulses normal and equal bilaterally._ ABDOMEN: Soft, nontender, normoactive bowel sounds. No guarding, no rebound. No masses_ EXTREMITIES: Mild dried scab over left forearm, Normal range of motion, no edema. No clubbing or cyanosis. NEUROLOGICAL: Cranial nerves II through XII grossly intact. Normal speech, no focal sensorimotor deficits _ SKIN: Warm, Dry, normal turgor ED Treatment Course - LABORATORY CBC & Chemistry Diagram: 08/08/19 04:48 08/08/19 08:55 - ADDITIONAL ORDERS Additional order review: Laboratory Results 08/07/19 18:55 POC Glucometer 574 08/07/19 18:55 POC Glucometer 574 - Medications Given in the ED: ED Medications Discontinued Medications Generic Name Dose Route Start Last Admin Trade Name Freq PRN Reason Stop Dose Admin Vancomycin HCl 1,000 mg 08/07/19 18:49 08/07/19 19:14 Vancomycin (Pre-Docked) IVPB 08/07/19 18:50 1,000 mg ONCE ONE Administration Protocol Medical Decision Making - Medical Decision Making 73M hx of DM HTN a-fib BIBEMS after well check. -sepsis work up -CT head/neck -vanc/zosyn 08/07/19 19:43 EKG shows 126 bpm, a-fib with RVR, nml axis, nml MT/QRS intervals, QTc 437, no ST elevation. 08/07/19 21:15 CXR negative for acute intrathoracic pathology. Labs reviewed. Pt in a-fib, unsure whether this is new onset. Pt unsure of his meds though does state he takes a blood thinner. Will start cardizem drip. Pt in DKA. Will start insulin drip and K supplementation. Laboratory Last Values WBC 6.0 K/mm3 (4.0-10.0) 08/07/19 19:40 RBC 3.91 M/mm3 (4.00-5.60) L 08/07/19 19:40 Hgb 12.5 GM/dL (11.7-16.9) 08/07/19 19:40 Hct 37.8 % (35.4-49) 08/07/19 19:40 MCV 96.7 fl (80-96) H 08/07/19 19:40 MCH 31.8 pg (25.7-33.7) 08/07/19 19:40 MCHC 32.9 g/dl (32.0-35.9) 08/07/19 19:40 RDW 15.6 % (11.9-15.9) 08/07/19 19:40 Plt Count 143 K/MM3 (134-434) 08/07/19 19:40 MPV 11.9 fl (7.5-11.1) H D 08/07/19 19:40 Absolute Neuts (auto) 4.4 K/mm3 (1.5-8.0) 08/07/19 19:40 Neutrophils % 73.6 % (42.8-82.8) D 08/07/19 19:40 Lymphocytes % 18.9 % (8-40) D 08/07/19 19:40 Monocytes % 7.1 % (3.8-10.2) 08/07/19 19:40 Eosinophils % 0.0 % (0-4.5) D 08/07/19 19:40 Basophils % 0.4 % (0-2.0) 08/07/19 19:40 Nucleated RBC % 0 % (0-0) 08/07/19 19:40 PT with INR 18.10 SEC (9.7-13.0) H 08/07/19 19:40 INR 1.53 (0.83-1.09) H 08/07/19 19:40 PTT (Actin FS) 28.8 SECONDS (25.2-36.5) 08/07/19 19:40 VBG pH 7.332 (7.310-7.410) 08/07/19 21:10 POC VBG pCO2 36.6 mmHg (38-52) L 08/07/19 21:10 POC VBG pO2 30.5 mmHg (28-48) 08/07/19 21:10 VBG HCO3 19.0 mmol/L (23-29) L 08/07/19 21:10 VBG O2 Sat (Alfonso) 54.5 % (70-80) L 08/07/19 21:10 VBG Base Excess -6.3 mmol/L (-2-2) L 08/07/19 21:10 Sodium 135 mmol/L (136-145) L 08/07/19 19:40 Potassium 3.7 mmol/L (3.5-5.1) 08/07/19 19:40 Chloride 100 mmol/L (98-107) 08/07/19 19:40 Carbon Dioxide 15 mmol/L (21-32) L 08/07/19 19:40 Anion Gap 20 MMOL/L (8-16) H 08/07/19 19:40 BUN 110.4 mg/dL (7-18) H* 08/07/19 19:40 Creatinine 4.1 mg/dL (0.55-1.3) H 08/07/19 19:40 Est GFR (CKD-EPI)AfAm 15.43 08/07/19 19:40 Est GFR (CKD-EPI)NonAf 13.31 08/07/19 19:40 POC Glucometer 574 UNITS (80-120) 08/07/19 18:55 Random Glucose 537 mg/dL (74-106) H* 08/07/19 19:40 Lactic Acid 2.9 mmol/L (0.4-2.0) H* 08/07/19 19:40 Calcium 7.9 mg/dL (8.5-10.1) L 08/07/19 19:40 Total Bilirubin 0.6 mg/dL (0.2-1) 08/07/19 19:40 AST 33 U/L (15-37) 08/07/19 19:40 ALT 24 U/L (13-61) 08/07/19 19:40 Alkaline Phosphatase 68 U/L (45-117) 08/07/19 19:40 Creatine Kinase 719 U/L (26-308) H 08/07/19 19:40 Creatine Kinase Index 1.6 % (0.0-5.0) 08/07/19 19:40 CK-MB (CK-2) 12.1 ng/mL (0.5-3.6) H 08/07/19 19:40 Troponin I < 0.02 ng/ml (0.00-0.05) 08/07/19 19:40 Total Protein 5.4 g/dl (6.4-8.2) L 08/07/19 19:40 Albumin 2.5 g/dl (3.4-5.0) L 08/07/19 19:40 Beta-Hydroxybutyrate 11.6 mg/dL (0.2-2.8) H 08/07/19 19:40 08/07/19 21:24 CT head negative for acute intracranial pathology. CT neck negative for fracture or subluxation. D/w Dr. Grajeda who accepts the patient for ICU admission. Will start heparin drip for therapeutic INR. Discharge - Discharge Information Problems reviewed: Yes Clinical Impression/Diagnosis: Atrial fibrillation with RVR, Acute renal failure, Elevated beta- hydroxybutyrate, Lactic acidosis, Falls, Closed head injury Condition: Critical - Admission Yes - Follow up/Referral - Patient Discharge Instructions - Post Discharge Activity
[2019-08-07 20:00] LABS: BASO % 0.4 % (0-2.0); HEMATOCRIT 37.8 % (35.4-49); HEMOGLOBIN 12.5 GM/dL (11.7-16.9); LYMPH % 18.9 % (8-40); MCH 31.8 pg (25.7-33.7); MCHC 32.9 g/dl (32.0-35.9); MEAN CELL VOLUME 96.7 fl (80-96); MEAN PLT VOLUME 11.9 fl (7.5-11.1); MONO % 7.1 % (3.8-10.2); NEUT % 73.6 % (42.8-82.8); PLATELET COUNT 143 K/MM3 (134-434); RBC 3.91 M/mm3 (4.00-5.60); RDW 15.6 % (11.9-15.9)
[2019-08-07 20:07] LABS: INR 1.53 (0.83-1.09); PROTHROMBIN TIME (PATIENT) 18.1 SEC (9.7-13.0)
[2019-08-07 20:09] LABS: ACTIVATED PTT 28.8 SECONDS (25.2-36.5)
[2019-08-07 20:27] LABS: ALBUMIN 2.5 g/dl (3.4-5.0); ALK PHOS 68 U/L (45-117); ANION GAP 20 MMOL/L (8-16); BILIRUBIN,TOTAL 0.6 mg/dL (0.2-1); CALCIUM 7.9 mg/dL (8.5-10.1); CHLORIDE 100 mmol/L (98-107); CO2 15 mmol/L (21-32); CREATININE 4.1 mg/dL (0.55-1.3); POTASSIUM 3.7 mmol/L (3.5-5.1); SGOT/AST 33 U/L (15-37); SGPT/ALT 24 U/L (13-61); SODIUM 135 mmol/L (136-145); TOT PROT 5.4 g/dl (6.4-8.2)
[2019-08-07 20:42] LABS: GLUCOSE,RANDOM 537 mg/dL (74-106)
[2019-08-07 20:44] LABS: BLOOD UREA NITROGEN 110.4 mg/dL (7-18)
[2019-08-07] MEDS ORDERED: LACTATED RINGERS SOLUTION 1000 ML INFUS.BAG IV ONE (21:13)
[2019-08-07] MEDS ORDERED: POTASSIUM CHLORIDE 20 MEQ PREMIX IVPB 100 ML IVPB ONE (21:15)
[2019-08-07] MEDS ORDERED: POTASSIUM CHLORIDE TABS 20 MEQ TABLET.ER (FP) PO ONE ×2 (21:15→21:40)
[2019-08-07] MEDS ORDERED: INSULIN REGULAR 100 UNITS in SODIUM CHLORIDE 99 ML IVPB SCH (21:15)
[2019-08-07 21:17] LABS: VENOUS BASE EXCESS -6.3 mmol/L (-2-2); VENOUS O2 SATURATION 54.5 % (70-80); VENOUS PCO2 36.6 mmHg (38-52); VENOUS PH 7.332 (7.310-7.410)
[2019-08-07] MEDS ORDERED: DILTIAZEM INJECTION 125 MG in SODIUM CHLORIDE 100 ML IVPB SCH (21:30)
[2019-08-07] MEDS ORDERED: KCL 10 MEQ IVPB 10 MEQ/100 ML INFUS.BAG IVPB ONE (21:40)
[2019-08-07] MEDS ORDERED: HEPARIN NA (PORCINE) 5,000 UNITS/ML 1ML VIAL IVPUSH PRN ×2 (21:55)
[2019-08-07] MEDS ORDERED: HEPARIN NA (PORCINE) 5,000 UNITS/ML 1ML VIAL IVPUSH ONE (22:02)
--- NOTE | 2019-08-07 22:21 | PDOC ---
Documentation entered by Lo Ruth SCRIBE, acting as scribe for Eva Yao DO. Eva Yao DO: This documentation has been prepared by the Faraz juarez Sydney, SCRIBE, under my direction and personally reviewed by me in its entirety. I confirm that the documentation accurately reflects all work, treatment, procedures, and medical decision making performed by me. Attending Attestation - Resident Resident Name: Brandon Gaming - ED Attending Attestation I have performed the following: I have examined & evaluated the patient, The case was reviewed & discussed with the resident, I agree w/resident's findings & plan, Exceptions are as noted - HPI HPI: 08/07/19 21:22 Patient is a 73 year old male with a significant past medical history of DM, HTN who presents to the ED s/p fall. Patient is a poor historian and offers a limited HPI. As per patient, he fell within the last few days, but is unable to recall when exactly he did or whether he hit his head or LOC. Patient reports he did not take his medication yesterday or today. Denies fever or chills. Allergies: NKDA - Physicial Exam PE: 08/07/19 21:31 Constitutional: + Poor historian. Awake, alert, oriented x 3. No acute distress. Head: +no external signs of trauma. Normocephalic. Eyes: PERRL. EOMI. Conjunctivae are not pale. ENT: Mucous membranes are moist and intact. Posterior pharynx without exudates or erythema. Uvula midline. Neck: Supple. Full ROM. No lymphadenopathy. Cardiovascular: +irregularly irregular, tachycardic. S1, S2 regular. Pulmonary/Chest: No evidence of respiratory distress. Clear to auscultation bilaterally No wheezing, rales or rhonchi. Abdominal: Soft and non-distended. There is no tenderness. No rebound, guarding or rigidity. No organomegaly. No palpable masses. Good bowel sounds. Back: No CVA tenderness. Musculoskeletal: No edema. No cyanosis. No clubbing. Full range of motion in all extremities. Nocalf tenderness. Skin: + L elbow laceration and bruising, R forearm bruising. Skin is warm and dry. Neurological: Alert and oriented to person, place, and time. Cranial nerves II-XII are grossly intact. Normal speech. Strength is grossly symmetric. No sensory deficits. - Critical Care Time Total Critical Care Time: 45 Critical Care Statement: The care of this patient involved high complexity decision making to prevent further life threatening deterioration of the patient's condition and/or to evaluate & treat vital organ system(s) failure or risk of failure. - Medical Decision Making 08/07/19 22:13 a/p: 73yo male with recent falls presents for eval of weakness/falls -called EMS for a well visit and found the pt in a disheveled home with feces everywhere and pt was hypotensive -pt arrives awake but a poor historian of events of the day -pt underwent head and c spine ct that was neg for acute injury or hemorrhage -labs reviewed, pt with arf, DKA, afib rvr -elevated lactate -ivf hydration running -iv abx given for poss sepsis -insulin gtt ordered for elevated glu and betahydroxybutyrate -pt with anion gap metabolic acidosis -pt states noncompliant with his meds recently -unsure med list -will start cardizem for afib rvr -pt will need icu admission -resident discussed the case with ICU team who accepts pt to service 08/07/19 22:16 mercado ordered for arf pt will be admitted to the icu 08/07/19 23:02 cxr clear Heart Score/ECG Review - ECG Intrepretation Comment:: 08/07/19 22:16 afib w rvr at 126, nl axis q waves septally which are age indeterminate, t wave flattening diffusely, no acute st/t wave findings Discharge - Discharge Information Problems reviewed: Yes Clinical Impression/Diagnosis: Atrial fibrillation with RVR, Acute renal failure, Elevated beta- hydroxybutyrate, Lactic acidosis, Falls, Closed head injury Condition: Critical - Admission Yes - Follow up/Referral - Patient Discharge Instructions - Post Discharge Activity
[2019-08-07] MEDS ORDERED: HEPARIN NA (PORCINE) 5,000 UNITS/ML 1ML VIAL ONE (22:33)
[2019-08-07] MEDS ORDERED: HEPARIN INFUSION - 25,000 UNITS/500 ML INFUS.BAG IVPB ONE (22:33)
[2019-08-07] MEDS: HEPARIN - 25,000 UNIT in SODIUM CHLORIDE 495 ML IV SCH (23:20)
[2019-08-08 00:25] LABS: URINE APPEARANCE CLEAR; URINE BILIRUBIN NEGATIVE (NEGATIVE); URINE COLOR YELLOW; URINE GLUCOSE (UA) 3+ (NEGATIVE); URINE KETONE NEGATIVE (NEGATIVE); URINE LEUK ESTERASE NEGATIVE (NEGATIVE); URINE NITRITE NEGATIVE (NEGATIVE); URINE PROTEIN NEGATIVE (NEGATIVE); URINE UROBILINOGEN 0.2 mg/dL (0.2-1.0)
--- NOTE | 2019-08-08 00:52 | CONSULT ---
Consultation: REQUESTING PROVIDER: Dr. Brandon Gaming CONSULT REQUEST: We have been asked to medically evaluate this patient for DKA. HISTORY OF PRESENT ILLNESS: Pt is a 73 yo M with a PMH of DM, HTN, BPH (s/p possible TURP, 2015), AFib with RVR (since 2016), and hx of CAD (s/p 4 drug-eluting stents, 11/2016) presenting to the ED s/p fall. Patient is a poor historian and offers limited HPI. As per patient, he fell this morning on his way to the bathroom, describing at as collapsing with pain and weakness in lower extremities and an inability to get back up. Pt reports defecating shortly after the fall as he could not reach the bathroom. He also experienced trauma to his elbows in trying to break his fall. EMS was called by his apartment traffic superintendent in the evening when he found him on the ground with feces around him and hypotensive at time of arrival. Denies associated head trauma, LOC, dizziness, nausea/vomiting, palpitations, or chest pain. He reports having fallen 5 times in the last 10 days, usually in public where people have helped him get back up. He reports having not taken his medi cations for the last two days, a recent decrease in appetite (restricted to strawberries, coffee, tea, and water over the last week), and increased fatigue. Denies recent fevers/chills, cough, SOB, abdominal pain, numbness, changes in urination, or weight loss. REVIEW OF SYSTEMS: CONSTITUTIONAL: loss of appetite; denies fevers/chills and weight loss HEENT: Denies rhinorrhea, nasal congestion, throat pain, throat swelling, difficulty swallowing, mouth swelling, ear pain, eye pain, visual changes CARDIOVASCULAR: Denies chest pain, syncope, palpitations, irregular heart rate, lightheadedness, peripheral edema RESPIRATORY: Denies cough, shortness of breath, dyspnea with exertion, orthopnea, wheezing, stridor, hemoptysis GASTROINTESTINAL: Denies abdominal pain, abdominal distension, nausea, vomiting, diarrhea, constipation, melena, hematochezia GENITOURINARY: Denies dysuria, frequency, urgency, MUSCULOSKELETAL: lower extremity joint pain, lower extremity weakness; denies myalgia, arthralgia, joint swelling SKIN: Denies rash, itching, pallor HEMATOLOGIC/IMMUNOLOGIC: Denies easy bleeding, easy bruising NEUROLOGIC: Denies headache, focal weakness or paresthesias, dizziness PMH - as per HPI PSH - "prostate surgery" - possibly TURP for BPH in 2015, rectal fistula repair many years back Allergies - NKDA Family Hx - family history or cardiovascular problems Social - Not working. Lives alone in an apartment in [place] with no family nearby. Smokes a pipe 3-4 times a day but no longer smokes cigarettes. Reports occasional EtOH use - although he is a poor historian and seemed to avoid the topic. ED Course notable for: - CT head and cervical spine - ruled out acute injury or hemorrhage. - Labs and further eval indicated that patient was in DKA, TIKI, and AFib with RVR - IVF hydration, insulin drip, KCl for DKA | cardizem for AFib with RVR PHYSICAL EXAMINATION Vital Signs - 24 hr 08/07/19 18:34 Temperature 96.8 F L Pulse Rate 162 H Respiratory 18 Rate Blood Pressure 86/54 L O2 Sat by Pulse 100 Oximetry (%) GENERAL: Awake, alert, and fully oriented, in no acute distress. HEAD: NCAT EYES: Pupils equal, round and reactive to light, extraocular movements intact, sclera anicteric, conjunctiva clear. EARS, NOSE, THROAT: Dry mucous membranes. Oropharynx clear without exudates. NECK: Supple without lymphadenopathy, JVD, or masses. LUNGS: Breath sounds equal, clear to auscultation bilaterally. No wheezes, and no crackles. No accessory muscle use. HEART: Irregular rate and rhythm, tachycardic, normal S1 and S2 without murmur, rub or gallop. ABDOMEN: Soft, nontender, not distended, normoactive bowel sounds, no guarding, no rebound, no masses. MUSCULOSKELETAL: Normal range of motion at all joints. UPPER EXTREMITIES: 2+ pulses, warm, well-perfused. No cyanosis. No clubbing. Cap refill <2 seconds. No peripheral edema. LOWER EXTREMITIES: 2+ pulses, warm, well-perfused. No calf tenderness. No peripheral edema. NEUROLOGICAL: Cranial nerves II-XII intact. 5/5 strength throughout. No sensory deficits SKIN: L elbow laceration and bruising. R forearm bruising. Nontender to palpation. Warm, dry, normal turgor, no rashes or lesions noted. Laboratory Results - last 24 hr 08/07/19 08/07/19 08/07/19 18:55 19:40 19:40 WBC 6.0 RBC 3.91 L Hgb 12.5 Hct 37.8 MCV 96.7 H MCH 31.8 MCHC 32.9 RDW 15.6 Plt Count 143 MPV 11.9 H D Absolute Neuts (auto) 4.4 Neutrophils % 73.6 D Lymphocytes % 18.9 D Monocytes % 7.1 Eosinophils % 0.0 D Basophils % 0.4 Nucleated RBC % 0 PT with INR 18.10 H INR 1.53 H PTT (Actin FS) 28.8 VBG pH POC VBG pCO2 POC VBG pO2 VBG HCO3 VBG O2 Sat (Alfonso) VBG Base Excess Sodium Potassium Chloride Carbon Dioxide Anion Gap BUN Creatinine Est GFR (CKD-EPI)AfAm Est GFR (CKD-EPI)NonAf POC Glucometer 574 Random Glucose Lactic Acid Calcium Total Bilirubin AST ALT Alkaline Phosphatase Creatine Kinase Creatine Kinase Index CK-MB (CK-2) Troponin I Total Protein Albumin Beta-Hydroxybutyrate Urine Color Urine Appearance Urine pH Ur Specific [place] Urine Protein Urine Glucose (UA) Urine Ketones Urine Blood Urine Nitrite Urine Bilirubin Urine Urobilinogen Ur Leukocyte Esterase 08/07/19 08/07/19 08/07/19 19:40 19:40 19:40 WBC RBC Hgb Hct MCV MCH MCHC RDW Plt Count MPV Absolute Neuts (auto) Neutrophils % Lymphocytes % Monocytes % Eosinophils % Basophils % Nucleated RBC % PT with INR INR PTT (Actin FS) VBG pH POC VBG pCO2 POC VBG pO2 VBG HCO3 VBG O2 Sat (Alfonso) VBG Base Excess Sodium 135 L Potassium 3.7 Chloride 100 Carbon Dioxide 15 L Anion Gap 20 H BUN 110.4 H* Creatinine 4.1 H Est GFR (CKD-EPI)AfAm 15.43 Est GFR (CKD-EPI)NonAf 13.31 POC Glucometer Random Glucose 537 H* Lactic Acid 2.9 H* Calcium 7.9 L Total Bilirubin 0.6 AST 33 ALT 24 Alkaline Phosphatase 68 Creatine Kinase 719 H Creatine Kinase Index 1.6 CK-MB (CK-2) 12.1 H Troponin I < 0.02 Total Protein 5.4 L Albumin 2.5 L Beta-Hydroxybutyrate 11.6 H Urine Color Urine Appearance Urine pH Ur Specific [place] Urine Protein Urine Glucose (UA) Urine Ketones Urine Blood Urine Nitrite Urine Bilirubin Urine Urobilinogen Ur Leukocyte Esterase 08/07/19 08/07/19 08/07/19 21:10 22:13 23:50 WBC RBC Hgb Hct MCV MCH MCHC RDW Plt Count MPV Absolute Neuts (auto) Neutrophils % Lymphocytes % Monocytes % Eosinophils % Basophils % Nucleated RBC % PT with INR INR PTT (Actin FS) VBG pH 7.332 POC VBG pCO2 36.6 L POC VBG pO2 30.5 VBG HCO3 19.0 L VBG O2 Sat (Alfonso) 54.5 L VBG Base Excess -6.3 L Sodium Potassium Chloride Carbon Dioxide Anion Gap BUN Creatinine Est GFR (CKD-EPI)AfAm Est GFR (CKD-EPI)NonAf POC Glucometer 492 Random Glucose Lactic Acid Calcium Total Bilirubin AST ALT Alkaline Phosphatase Creatine Kinase Creatine Kinase Index CK-MB (CK-2) Troponin I Total Protein Albumin Beta-Hydroxybutyrate Urine Color Yellow Urine Appearance Clear Urine pH 5.0 Ur Specific [place] 1.018 Urine Protein Negative Urine Glucose (UA) 3+ H Urine Ketones Negative Urine Blood Negative Urine Nitrite Negative Urine Bilirubin Negative Urine Urobilinogen 0.2 Ur Leukocyte Esterase Negative 08/07/19 08/08/19 23:50 00:43 WBC RBC Hgb Hct MCV MCH MCHC RDW Plt Count MPV Absolute Neuts (auto) Neutrophils % Lymphocytes % Monocytes % Eosinophils % Basophils % Nucleated RBC % PT with INR INR PTT (Actin FS) VBG pH POC VBG pCO2 POC VBG pO2 VBG HCO3 VBG O2 Sat (Alfonso) VBG Base Excess Sodium Potassium Chloride Carbon Dioxide Anion Gap BUN Creatinine Est GFR (CKD-EPI)AfAm Est GFR (CKD-EPI)NonAf POC Glucometer 187 Random Glucose Lactic Acid 1.8 Calcium Total Bilirubin AST ALT Alkaline Phosphatase Creatine Kinase Creatine Kinase Index CK-MB (CK-2) Troponin I Total Protein Albumin Beta-Hydroxybutyrate Urine Color Urine Appearance Urine pH Ur Specific [place] Urine Protein Urine Glucose (UA) Urine Ketones Urine Blood Urine Nitrite Urine Bilirubin Urine Urobilinogen Ur Leukocyte Esterase Active Medications Generic Name Dose Route Start Last Admin Trade Name Freq PRN Reason Stop Dose Admin Heparin Sodium (Porcine) 1,000 unit 08/07/19 21:55 Heparin - IVPUSH PRN PRN Heparin Heparin Sodium (Porcine) 5,000 unit 08/07/19 21:55 Heparin - IVPUSH PRN PRN Heparin Insulin Human Regular 100 100 mls @ 9.072 mls/hr 08/07/19 21:15 08/08/19 00:45 units/ Sodium Chloride IVPB 0.06 units/kg/hr TITR KEO 5 mls/hr Titration Protocol 0.1 UNITS/KG/HR Diltiazem HCl 125 mg/ Sodium 125 mls @ 5 mls/hr 08/07/19 21:30 08/07/19 22:31 Chloride IVPB 5 mg/hr TITR KOE 5 mls/hr Administration Protocol 5 MG/HR Heparin Sodium (Porcine) 25, 500 mls @ 20 mls/hr 08/07/19 22:00 08/07/19 23:20 000 unit/ Sodium Chloride IV 1,000 unit/hr TITR KEO 20 mls/hr Administration Protocol 1,000 UNIT/HR ASSESSMENT/PLAN: Pt is a 73 yo M with a PMH of DM, HTN, BPH (s/p possible TURP, 2014), AFib with RVR (since 2016), and hx of CAD (s/p 4 drug-eluting stents, 11/2016) arriving to the ED due to a fall and found to have DKA and AFib with RVR. Admitted to ICU for DKA management. Neuro A&Ox3; subjective hx of multiple falls - CT head negative - Echo to check for valvular dysfunction - Have PT see patient - UTox/EtOH to check for alcohol use/abuse as cause - Fall precautions, continue to monitor CV AFib with RVR CAD s/p stents - cardizem drip started in ED for rate control; titrate to maintain HR < 120 bpm | switched to amiodarone d/t hypotension on cardizem - heparin drip started for anticoag; INR 1.53 - clarify home Coumadin dose, bridging with heparin for now - continue home aspirin 81 mg daily - cardiology consult ordered with Dr. Ozzie Mejia Breathing comfortably, saturating well, and no SOB; does not require supplemental O2 - Continue to monitor Endocrine DKA secondary to medication non-adherence (glucose 574 | HCO3 15 | AG 20 | Beta- hydroxybutyrate 11.6) - IV insulin drip started in ED; titrate to BG < 250 - IV fluids started in ED; transitioned to D5 1/2NS w/ 20 mEq KCl when glucose < 200 - Repeat BMP showed HCO3 16; will follow repeat BMP q2h - Continuing insulin drip until resolution of acidemia and closure of anion gap. Will then transition to SQ insulin and begin diet. - Noted hypoglycemia to 39 upon arrival to ICU, D50 given Renal TIKI (BUN 110.4 | Cr 4.1), baseline Cr 1.1 in 2017; Likely prerenal azotemia 2/2 dehydration in setting of DKA - pt responding to IV fluid boluses, Cr downtrending to 3.6 - follow BMP, I/O ID - minimal concern for sepsis as etiology; no leukocytosis present - follow blood/urine cultures done in ED - unclear source at this time, vanc/zosyn given ED | continue to monitor FEN - Fluids - D5 1/2 NS w/ 20 mEq KCL at 150 mL/hr - Lytes - wnl - follow BMP; replete PRN - Nutrition - initiate diabetic diet upon dc of insulin drip Ppx - Heparin drip Dispo: We will continue to follow the patient. Thank you for this consultative opportunity. Visit type - Emergency Visit Emergency Visit: Yes ED Registration Date: 08/07/19 Care time: The patient presented to the Emergency Department on the above date and was hospitalized for further evaluation of their emergent condition. - New Patient This patient is new to me today: Yes Date on this admission: 08/08/19 - Critical Care Critical Care patient: Yes Total Critical Care Time (in minutes): 60 Critical Care Statement: The care of this patient involved high complexity decision making to prevent further life threatening deterioration of the patient's condition and/or to evaluate & treat vital organ system(s) failure or risk of failure. ATTENDING PHYSICIAN STATEMENT I saw and evaluated the patient. I reviewed the resident's note and discussed the case with the resident. I agree with the resident's findings and plan as documented. SUBJECTIVE: OBJECTIVE: ASSESSMENT AND PLAN:
[2019-08-08 01:51] LABS: CALCIUM 7.6 mg/dL (8.5-10.1); CREATININE 3.6 mg/dL (0.55-1.3); POTASSIUM 3.8 mmol/L (3.5-5.1)
[2019-08-08] MEDS ORDERED: INSULIN (LEVEMIR) 100 UNITS/ML UNITS SQ SCH (02:35)
[2019-08-08] MEDS ORDERED: D5-1/2NS+20 MEQ KCL - 20 MEQ/1,000 ML INFUS.BAG IV SCH (02:45)
[2019-08-08 05:04] LABS: HEMATOCRIT 31.3 % (35.4-49); HEMOGLOBIN 10.4 GM/dL (11.7-16.9); MCH 31.9 pg (25.7-33.7); MCHC 33.3 g/dl (32.0-35.9); MEAN CELL VOLUME 95.7 fl (80-96); MEAN PLT VOLUME 11.1 fl (7.5-11.1); PLATELET COUNT 145 K/MM3 (134-434); RBC 3.27 M/mm3 (4.00-5.60); RDW 15.5 % (11.9-15.9)
[2019-08-08 05:25] LABS: ALBUMIN 1.9 g/dl (3.4-5.0); BILIRUBIN,TOTAL 0.6 mg/dL (0.2-1); BLOOD UREA NITROGEN 81.3 mg/dL (7-18); CREATININE 2.7 mg/dL (0.55-1.3); MAGNESIUM 2.6 mg/dL (1.8-2.4); PHOSPHOROUS 4.1 mg/dL (2.5-4.9); TOT PROT 4.6 g/dl (6.4-8.2)
[2019-08-08 05:58] LABS: CALCIUM 6.6 mg/dL (8.5-10.1)
[2019-08-08] MEDS ORDERED: DEXTROSE 50%-WATER - 25 GM/50 ML VIAL IVPUSH ONE (06:04)
[2019-08-08] MEDS ORDERED: AMIODARONE IN DEXTROSE,ISO-OSM 150 MG/100 ML BAG IVPB ONE (06:07)
[2019-08-08] MEDS ORDERED: AMIODARONE IN DEXTROSE,ISO-OSM 360 MG/200 ML BAG ONE (06:13)
[2019-08-08] MEDS ORDERED: DEXTROSE 5% IVPB SCH (06:30)
[2019-08-08] MEDS ORDERED: AMIODARONE HCL IVPB SCH (06:30)
[2019-08-08] MEDS ORDERED: AMIODARONE HCL INJECTION 450 MG in DEXTROSE 5%-WATER - 241 ML IVPB SCH (06:30)
[2019-08-08] MEDS ORDERED: AMIODARONE IN DEXTROSE,ISO-OSM 360 MG/200 ML BAG IVPB SCH (06:30)
[2019-08-08] MEDS ORDERED: WATER IVPB SCH (06:30)
[2019-08-08] MEDS ORDERED: CALCIUM GLUCONATE 10% - 1,000 MG/10 ML VIAL IVPB ONE (06:48)
[2019-08-08 08:02] LABS: BLOOD UREA NITROGEN 90.5 mg/dL (7-18); CALCIUM 7.1 mg/dL (8.5-10.1); CREATININE 2.8 mg/dL (0.55-1.3); POTASSIUM 5.1 mmol/L (3.5-5.1)
[2019-08-08 08:45] VITALS: BMI 28.8
[2019-08-08] MEDS ORDERED: PNEUMOC 13-VAL CONJ-DIP CRM/PF 0.5 ML DISP.SYRIN IM ONE (08:45)
[2019-08-08] MEDS: INSULIN SLIDING SCALE (NOVOLOG) 1 VIAL SQ SCH ×4 (08:56→21:20)
--- NOTE | 2019-08-08 10:45 | EKG ---
Test Reason : Blood Pressure : / mmHG Vent. Rate : 126 BPM Atrial Rate : 166 BPM P-R Int : 000 ms QRS Dur : 094 ms QT Int : 302 ms P-R-T Axes : 000 036 -44 degrees QTc Int : 437 ms ATRIAL FIBRILLATION WITH RAPID VENTRICULAR RESPONSE NONSPECIFIC ST ABNORMALITY NO PREVIOUS ECGS AVAILABLE Confirmed by MALLY FRYE MD ([id number]) on 08/08/2019 10:44:51 AM Referred By: Confirmed By:MALLY FRYE MD
[2019-08-08 11:39] LABS: CALCIUM 7.5 mg/dL (8.5-10.1); CREATININE 2.6 mg/dL (0.55-1.3); POTASSIUM 4.1 mmol/L (3.5-5.1)
[2019-08-08 12:09] LABS: METHADONE, UR NEGATIVE ng/ml (CUTOFF=300); PHENCYCLIDINE,URINE NEGATIVE ng/ml (CUTOFF=25); URINE BARBITURATES NEGATIVE ng/ml (CUTOFF=200)
[2019-08-08 12:12] LABS: COCAINE, UR NEGATIVE ng/ml (CUTOFF=300); OPIATES, URI NEGATIVE ng/ml (CUTOFF=300); URINE AMPHETAMINES NEGATIVE ng/ml (CUTOFF=500); URINE BENZODIAZEPINES NEGATIVE ng/ml (CUTOFF=200)
--- NOTE | 2019-08-08 13:01 | PN ---
Teaching Attending Note Name of Resident: Tessa Chairez ATTENDING PHYSICIAN STATEMENT I saw and evaluated the patient. I reviewed the resident's note and discussed the case with the resident. I agree with the resident's findings and plan as documented. SUBJECTIVE: 73 M DM, HTN, BPH (s/p possible TURP, 2014), AFib with RVR, and CAD (s/p 4 drug- eluting stents, 11/2016). Admitted via the ER due to S/P fall. Found to be in Rapid AFib and AMS. Apparently fell 5 times in the last few days. Thought to be in DKA but had hyperglycemia. Became hypoglycemic overnight. Now awake and alert and oriented. Denies CP or SOB. Noted new TIKI. Intake & Output 08/05/19 08/06/19 08/07/19 08/08/19 23:59 23:59 23:59 23:59 Output Total 100 Balance -100 Weight 200 lb 179 lb Last Vital Signs Temp Pulse Resp BP Pulse Ox 98 F 112 H 16 102/61 96 08/08/19 08:00 08/08/19 08:26 08/08/19 08:26 08/08/19 08:26 08/08/19 03:24 Active Medications Heparin Sodium (Porcine) (Heparin -) 1,000 unit IVPUSH PRN PRN PRN Reason: Heparin Heparin Sodium (Porcine) (Heparin -) 5,000 unit IVPUSH PRN PRN PRN Reason: Heparin Last Admin: 08/08/19 06:10 Dose: 5,000 unit Documented by: Heparin Sodium (Porcine) 25, (000 unit/ Sodium Chloride) 500 mls @ 20 mls/hr IV TITR KEO; Protocol Last Titration: 08/08/19 06:09 Dose: 1,150 unit/hr, 23 mls/hr Documented by: Insulin Aspart (Novolog Vial Sliding Scale -) 1 vial SQ ACHS KEO; Protocol Last Admin: 08/08/19 08:56 Dose: Not Given Documented by: Pneumococcal 13-Valent Conj Vacc (Prevnar 13 Syringe -) 0.5 ml IM .ONCE ONE Stop: 08/08/19 08:46 GENERAL: Awake, alert, and fully oriented, in no acute distress. HEAD: NCAT EYES: Pupils equal, round and reactive to light, extraocular movements intact, sclera anicteric, conjunctiva clear. EARS, NOSE, THROAT: Dry mucous membranes. Oropharynx clear without exudates. NECK: Supple without lymphadenopathy, JVD, or masses. LUNGS: Breath sounds equal, clear to auscultation bilaterally. No wheezes, and no crackles. No accessory muscle use. HEART: Irregular rate and rhythm, tachycardic, normal S1 and S2 without murmur, rub or gallop. ABDOMEN: Soft, nontender, not distended, normoactive bowel sounds, no guarding, no rebound, no masses. MUSCULOSKELETAL: Normal range of motion at all joints. UPPER EXTREMITIES: 2+ pulses, warm, well-perfused. No cyanosis. No clubbing. Cap refill <2 seconds. No peripheral edema. LOWER EXTREMITIES: 2+ pulses, warm, well-perfused. No calf tenderness. No peripheral edema. NEUROLOGICAL: Cranial nerves II-XII intact. 5/5 strength throughout. No sensory deficits SKIN: L elbow laceration and bruising. R forearm bruising. Nontender to palpation. Warm, dry, normal turgor, no rashes or lesions noted. Laboratory Results - last 24 hr 08/07/19 08/07/19 08/07/19 18:55 19:40 19:40 WBC 6.0 RBC 3.91 L Hgb 12.5 Hct 37.8 MCV 96.7 H MCH 31.8 MCHC 32.9 RDW 15.6 Plt Count 143 MPV 11.9 H D Absolute Neuts (auto) 4.4 Neutrophils % 73.6 D Lymphocytes % 18.9 D Monocytes % 7.1 Eosinophils % 0.0 D Basophils % 0.4 Nucleated RBC % 0 PT with INR 18.10 H INR 1.53 H PTT (Actin FS) 28.8 VBG pH POC VBG pCO2 POC VBG pO2 VBG HCO3 VBG O2 Sat (Alfonso) VBG Base Excess Sodium Potassium Chloride Carbon Dioxide Anion Gap BUN Creatinine Est GFR (CKD-EPI)AfAm Est GFR (CKD-EPI)NonAf POC Glucometer 574 Random Glucose Lactic Acid Calcium Total Bilirubin AST ALT Alkaline Phosphatase Creatine Kinase Creatine Kinase Index CK-MB (CK-2) Troponin I Total Protein Albumin Beta-Hydroxybutyrate Urine Color Urine Appearance Urine pH Ur Specific [place] Urine Protein Urine Glucose (UA) Urine Ketones Urine Blood Urine Nitrite Urine Bilirubin Urine Urobilinogen Ur Leukocyte Esterase 08/07/19 08/07/19 08/07/19 19:40 19:40 19:40 WBC RBC Hgb Hct MCV MCH MCHC RDW Plt Count MPV Absolute Neuts (auto) Neutrophils % Lymphocytes % Monocytes % Eosinophils % Basophils % Nucleated RBC % PT with INR INR PTT (Actin FS) VBG pH POC VBG pCO2 POC VBG pO2 VBG HCO3 VBG O2 Sat (Alfonso) VBG Base Excess Sodium 135 L Potassium 3.7 Chloride 100 Carbon Dioxide 15 L Anion Gap 20 H BUN 110.4 H* Creatinine 4.1 H Est GFR (CKD-EPI)AfAm 15.43 Est GFR (CKD-EPI)NonAf 13.31 POC Glucometer Random Glucose 537 H* Lactic Acid 2.9 H* Calcium 7.9 L Total Bilirubin 0.6 AST 33 ALT 24 Alkaline Phosphatase 68 Creatine Kinase 719 H Creatine Kinase Index 1.6 CK-MB (CK-2) 12.1 H Troponin I < 0.02 Total Protein 5.4 L Albumin 2.5 L Beta-Hydroxybutyrate 11.6 H Urine Color Urine Appearance Urine pH Ur Specific [place] Urine Protein Urine Glucose (UA) Urine Ketones Urine Blood Urine Nitrite Urine Bilirubin Urine Urobilinogen Ur Leukocyte Esterase 08/07/19 08/07/19 08/07/19 21:10 22:13 23:50 WBC RBC Hgb Hct MCV MCH MCHC RDW Plt Count MPV Absolute Neuts (auto) Neutrophils % Lymphocytes % Monocytes % Eosinophils % Basophils % Nucleated RBC % PT with INR INR PTT (Actin FS) VBG pH 7.332 POC VBG pCO2 36.6 L POC VBG pO2 30.5 VBG HCO3 19.0 L VBG O2 Sat (Alfonso) 54.5 L VBG Base Excess -6.3 L Sodium Potassium Chloride Carbon Dioxide Anion Gap BUN Creatinine Est GFR (CKD-EPI)AfAm Est GFR (CKD-EPI)NonAf POC Glucometer 492 Random Glucose Lactic Acid Calcium Total Bilirubin AST ALT Alkaline Phosphatase Creatine Kinase Creatine Kinase Index CK-MB (CK-2) Troponin I Total Protein Albumin Beta-Hydroxybutyrate Urine Color Yellow Urine Appearance Clear Urine pH 5.0 Ur Specific [place] 1.018 Urine Protein Negative Urine Glucose (UA) 3+ H Urine Ketones Negative Urine Blood Negative Urine Nitrite Negative Urine Bilirubin Negative Urine Urobilinogen 0.2 Ur Leukocyte Esterase Negative 08/07/19 08/08/19 23:50 00:43 WBC RBC Hgb Hct MCV MCH MCHC RDW Plt Count MPV Absolute Neuts (auto) Neutrophils % Lymphocytes % Monocytes % Eosinophils % Basophils % Nucleated RBC % PT with INR INR PTT (Actin FS) VBG pH POC VBG pCO2 POC VBG pO2 VBG HCO3 VBG O2 Sat (Alfonso) VBG Base Excess Sodium Potassium Chloride Carbon Dioxide Anion Gap BUN Creatinine Est GFR (CKD-EPI)AfAm Est GFR (CKD-EPI)NonAf POC Glucometer 187 Random Glucose Lactic Acid 1.8 Calcium Total Bilirubin AST ALT Alkaline Phosphatase Creatine Kinase Creatine Kinase Index CK-MB (CK-2) Troponin I Total Protein Albumin Beta-Hydroxybutyrate Urine Color Urine Appearance Urine pH Ur Specific [place] Urine Protein Urine Glucose (UA) Urine Ketones Urine Blood Urine Nitrite Urine Bilirubin Urine Urobilinogen Ur Leukocyte Esterase Active Medications Generic Name Dose Route Start Last Admin Trade Name Freq PRN Reason Stop Dose Admin Heparin Sodium (Porcine) 1,000 unit 08/07/19 21:55 Heparin - IVPUSH PRN PRN Heparin Heparin Sodium (Porcine) 5,000 unit 08/07/19 21:55 Heparin - IVPUSH PRN PRN Heparin Insulin Human Regular 100 100 mls @ 9.072 mls/hr 08/07/19 21:15 08/08/19 00:45 units/ Sodium Chloride IVPB 0.06 units/kg/hr TITR KEO 5 mls/hr Titration Protocol 0.1 UNITS/KG/HR Diltiazem HCl 125 mg/ Sodium 125 mls @ 5 mls/hr 08/07/19 21:30 08/07/19 22:31 Chloride IVPB 5 mg/hr TITR KEO 5 mls/hr Administration Protocol 5 MG/HR Heparin Sodium (Porcine) 25, 500 mls @ 20 mls/hr 08/07/19 22:00 08/07/19 23:20 000 unit/ Sodium Chloride IV 1,000 unit/hr TITR KEO 20 mls/hr Administration Protocol 1,000 UNIT/HR ASSESSMENT/PLAN: Hyperglycemia : not in DKA Resolved Hypoglycemia DM HTN BPH (s/p possible TURP, 2014) AFib with RVR CAD History of 4 drug-eluting stents IVF IV Insulin stopped overnight SQ Insulin Supplemental O2 as needed Fall precautions Noted Amiodarone : Trial of CCB IV heparin Cardiology evaluation was called Glycemic control Cardiac Telemetry monitoring Dr Corey
--- NOTE | 2019-08-08 14:07 | PN ---
Physical Exam: ICU Progress Note: Overnight Events: Pt arrived on the unit. No significant events reported in interim. No further hypoglycemic events. Physical Exams: GENERAL: The patient is awake, alert, and fully oriented, in no acute distress. HEAD: Normal with no signs of trauma. NECK: Trachea midline LUNGS: Breath sounds equal, equal chest rise and fall. No respiratory distress. HEART: Regular rate and rhythm EXTREMITIES: warm, well-perfused NEUROLOGICAL: Normal speech, gait not observed. Moving all four extremities spontaneously. SKIN: Warm, dry ASSESSMENT / PLAN: Pt is a 73 yo M with a PMH of DM, HTN, BPH (s/p possible TURP, 2014), AFib with RVR (since 2016), and hx of CAD (s/p 4 drug-eluting stents, 11/2016) arriving to the ED due to a fall and found to have DKA and AFib with RVR. Admitted to ICU for DKA management. Neuro - A/Ox4 - No sedating medications CV - AFib with RVR rate controlled with amiodarone drip. Pt does not appear to be on a home rate control medication. Will trial P.O. Cardizem. Discussed with Dr. Horne who also suggested adding Digoxin if rate persists above 120 on current therapy. - CAD s/p stents on ASA Pulm - Stable on room air Endocrine - DKA versus hyperglycemic episode. Anion gap closed. BGL improved. No further indication for IV insulin. Continue transition to SQ insulin. ID - Low suspicion for infectious etiology. Cultures NGTD. FEN - IVF discontinued and pt transitioned to diabetic diet Ppx - Heparin drip Dispo: Pt no longer required ICU monitoring. Case discussed with [facility] Hospitalist Attending Dr. Gregory. Accepted transfer to telemetry for further management. Gume Coker M.D., PGY3 ICU Service 08 August 2019 Visit type - Emergency Visit Emergency Visit: Yes ED Registration Date: 08/07/19 Care time: The patient presented to the Emergency Department on the above date and was hospitalized for further evaluation of their emergent condition. - New Patient This patient is new to me today: Yes Date on this admission: 08/09/19 - Critical Care Critical Care patient: Yes Total Critical Care Time (in minutes): 35 Critical Care Statement: The care of this patient involved high complexity decision making to prevent further life threatening deterioration of the patient's condition and/or to evaluate & treat vital organ system(s) failure or risk of failure.
--- NOTE | 2019-08-08 14:23 | CON.CARD ---
Consult Consult Specialty:: Cardiology Referred by:: ICU Reason for Consultation:: afib with rvr - History of Present Illness Chief Complaint: admitted with falls, dka History of Present Illness: 73 year old man pmh HTN, DM, known Pafib with RVR dx 2017, CAD s/p stents 2017 at [facility], admitted with mechanical falls found to be hyperglycemic followed by hypoglycemic with NICO, afib with rvr. Pt was last seen by me >2 years ago. He has not followed with a wrapper stitcher since then. currently states he is feeling better states his legs have been weak lately and this is why he fell. denies LOC or near syncope. no chest pain, sob, palpitations, pnd, orthopnea or LE edema. - History Source History Provided By: Patient, Medical Record Limitations to Obtaining History: No Limitations - Past Medical History Cardio/Vascular: Yes: AFIB, CAD, HTN, Hyperlipdemia Endocrine: Yes: Diabetes Mellitus - Alcohol/Substance Use Hx Alcohol Use: No - Smoking History Smoking history: Never smoked Have you smoked in the past 12 months: No If you are a former smoker, when did you quit?: 20YRS AGO - Social History ADL: Independent History of Recent Travel: No Home Medications - Allergies Allergies/Adverse Reactions: Allergies Allergy/AdvReac Type Severity Reaction Status Date / Time No Known Drug Allergies Allergy Verified 10/05/14 14:32 - Home Medications Home Medications: Ambulatory Orders Aspirin [Ecotrin] 81 mg PO DAILY 10/05/14 Glipizide 10 mg PO DAILY 10/05/14 Lisinopril/Hydrochlorothiazide [Lisinopril-Hctz 20-25 mg Tab] 1 each PO DAILY 10/05/14 metFORMIN HCL [Metformin HCl ER] 1,000 mg PO DAILY 10/05/14 Levofloxacin [Levaquin] 500 mg PO DAILY #4 tablet 10/07/14 Oxycodone HCl/Acetaminophen [Percocet 5-325 mg Tablet] 2 combo PO Q4H PRN #10 tablet 10/07/14 levoFLOXacin 500 MG IVPB [Levaquin 500 mg Premixed Ivpb -] 500 mg IVPB DAILY #4 bag 10/07/14 Aspirin [ASA -] 81 mg PO DAILY 11/14/16 Glipizide Xl [Glucotrol Xl -] 10 mg PO DAILY@0700 10/10/17 Lisinopril/Hydrochlorothiazide [Lisinopril-Hctz 20-25 mg Tab] 1 tab PO DAILY 11/14/16 metFORMIN HCL [Metformin HCl ER] 1,000 mg PO DAILY 11/14/16 Family Medical History Family History: Denies Review of Systems - Review of Systems Constitutional: reports: Malaise, Weakness Eyes: reports: No Symptoms HENT: reports: No Symptoms Neck: reports: No Symptoms Cardiovascular: reports: No Symptoms Respiratory: reports: No Symptoms Gastrointestinal: reports: No Symptoms Genitourinary: reports: No Symptoms Breasts: reports: No Symptoms Reported Musculoskeletal: reports: Muscle Weakness Integumentary: reports: No Symptoms Neurological: reports: No Symptoms Endocrine: reports: No Symptoms Hematology/Lymphatic: reports: No Symptoms Psychiatric: reports: No Symptoms - Risk Factors Known Risk Factors: Yes: Diabetes Mellitus, Hypertension Vital Signs: Vital Signs Temperature 98 F 08/08/19 10:26 Pulse Rate 100 H 08/08/19 14:00 Respiratory Rate 16 08/08/19 14:00 Blood Pressure 96/61 08/08/19 12:00 O2 Sat by Pulse Oximetry (%) 96 08/08/19 09:00 Constitutional: Yes: No Distress, Calm Eyes: Yes: Conjunctiva Clear, EOM Intact, PERRL HENT: Yes: Atraumatic, Normocephalic Neck: Yes: Supple, Trachea Midline Respiratory: Yes: Regular, CTA Bilaterally. No: Rales, Rhonchi, SOB, Wheezes Gastrointestinal: Yes: Normal Bowel Sounds, Soft. No: Distention, Tenderness Cardiovascular: Yes: Tachycardia, Pulse Irregular. No: Regular Rate and Rhythm, Bradycardia, Gallop, Rub, Varicosities JVD: No Carotid Bruit: No PMI: Non-Displaced Heart Sounds: Yes: S1, S2. No: Split S2, S3, S4, Clicks, Gallop, Rub, Bruit Murmur: No: Systolic Murmur, Diastolic Murmur Extremities: Yes: WNL Edema: No Peripheral Pulses WNL: Yes Peripheral Pulses: 2+ Left Doralis Pedis, 2+ Right Dorsalis Pedis Neurological: Yes: Alert, Oriented Psychiatric: Yes: Alert, Oriented - Other Data Labs, Other Data: CBC, BMP 08/08/19 04:48 08/08/19 08:55 INR, PTT INR 1.53 (0.83-1.09) H 08/07/19 19:40 Troponin, BNP 08/07/19 19:40 Troponin I < 0.02 Troponin, BNP 08/07/19 19:40 Troponin I < 0.02 afib with rvr 126bpm, nsst Imaging - Results Chest X-ray: Report Reviewed, Image Reviewed EKG: Report Reviewed, Image Reviewed Other: Report Reviewed, Image Reviewed (tele-afib, with rvr, hr improved) Assessment/Plan 73 year old man pmh HTN, DM, known Pafib with RVR dx 2017, CAD s/p stents 2017 at [facility], admitted with mechanical falls found to be hyperglycemic followed by hypoglycemic with NICO, afib with rvr. Pt was last seen by me >2 years ago. He has not followed with a wrapper stitcher since then. currently states he is feeling better states his legs have been weak lately and this is why he fell. denies LOC or near syncope. no chest pain, sob, palpitations, pnd, orthopnea or LE edema. Paroxsymal atrial fibrillation with rvr -was on amio due to hypotension, now off -received diltiazem today. -cont diltiazem for now and uptitrate as needed for HR control as BP tolerates -if needed for HR control can given Digoxin with caution given NICO. -if HR sustained >120bpm can give IV Digoxin 0.25mg x 2 doses 6 hours apart -IVF hydration as needed -cont heparin gtt for now with plan to transition back to oral AC prior to discharge -ok to transfer to tele CAD with multiple prior stents 2017 at [facility] -clarify if on ASA at home -ideally would transition diltiazem to bblocker for both CAD and afib, however can be done later Pt needs to establish outpatient cardiology care. He has not been seen in > 2 years. discussed with him and he agrees to fup as outpatient.
--- NOTE | 2019-08-08 18:09 | PN ---
Progress Note (short form) - Note Progress Note: This patient is being transferred out of the ICU. Pt is a 73 yo M with a PMH of DM, HTN, BPH (s/p possible TURP, 2014), AFib with RVR (since 2016), and hx of CAD (s/p 4 drug-eluting stents, 11/2016) presenting to the ED s/p fall. He is feeling better no distress no fever no chills. Vital Signs Period Temp Pulse Resp BP Sys/Wallace Pulse Ox Last 24 Hr 96.8 F-98 F 86-162 14-19 70-148/52-107 95-100 Patient is comfortable HEENT normal Neck supple no JVD Lungs clear no wheezing Abdomen nontender no organomegaly bowel sounds normal Extremities no edema no cyanosis normal pulses Neurologically he is alert awake oriented, nonfocal Skin no rash noted Heart S1-S2 irregular CBC, BMP 08/08/19 04:48 08/08/19 08:55 Current Medications Generic Name Dose Route Start Last Admin Trade Name Freq PRN Reason Stop Dose Admin Diltiazem HCl 120 mg 08/08/19 14:15 08/08/19 14:25 Cardizem Cd - PO 120 mg DAILY KEO Administration Heparin Sodium (Porcine) 1,000 unit 08/07/19 21:55 Heparin - IVPUSH PRN PRN Heparin Heparin Sodium (Porcine) 5,000 unit 08/07/19 21:55 08/08/19 06:10 Heparin - IVPUSH 5,000 unit PRN PRN Administration Heparin Heparin Sodium (Porcine) 25, 500 mls @ 20 mls/hr 08/07/19 22:00 08/08/19 06:09 000 unit/ Sodium Chloride IV 1,150 unit/hr TITR KEO 23 mls/hr Titration Protocol 1,000 UNIT/HR Insulin Aspart 1 vial 08/08/19 07:00 08/08/19 16:44 Novolog Vial Sliding Scale - SQ 6 units ACHS KEO Administration Protocol Pneumococcal 13-Valent Conj Vacc 0.5 ml 08/08/19 08:45 Prevnar 13 Syringe - IM 08/08/19 08:46 .ONCE ONE Assessment and plan Fall in the home Coronary artery disease Atrial fibrillation with rapid ventricular response off amiodarone BPH Hypertension Renal insufficiency Will start her insulin coverage Cardiac follow-up noted will call nephrology consult because of high creatinine continue oxygen physical therapy According to cardiology continue heparin this time will change to p.o. anticoagulant on discharge Visit type - Emergency Visit Emergency Visit: Yes ED Registration Date: 08/07/19 Care time: The patient presented to the Emergency Department on the above date and was hospitalized for further evaluation of their emergent condition. - New Patient This patient is new to me today: Yes Date on this admission: 08/08/19 - Critical Care Critical Care patient: No - Discharge Referral Referred to [facility] No
[2019-08-08] MEDS ORDERED: DIGOXIN 0.5 MG/2 ML AMPUL IVPUSH ONE (18:49)
[2019-08-08] MEDS: DIGOXIN 0.5 MG/2 ML AMPUL IVPUSH SCH (19:17)
[2019-08-08] MEDS: HEPARIN - 25,000 UNIT in SODIUM CHLORIDE 495 ML IV SCH (21:26)
[2019-08-09] MEDS ORDERED: HEPARIN SOD,PORK IN 0.45% NACL 25,000 UNITS/500 ML INFUS.BAG IVPB SCH (00:36)
[2019-08-09] MEDS ORDERED: HEPARIN NA (PORCINE) 5,000 UNITS/ML 1ML VIAL IVPUSH PRN ×2 (00:36)
[2019-08-09] MEDS: DIGOXIN 0.5 MG/2 ML AMPUL IVPUSH SCH (01:40)
[2019-08-09] MEDS: INSULIN SLIDING SCALE (NOVOLOG) 1 VIAL SQ SCH ×4 (06:21→21:44)
--- NOTE | 2019-08-09 07:57 | PN ---
Progress Note, Physician History of Present Illness: 73 yo M with a PMH of DM, HTN, BPH (s/p possible TURP, 2015), AFib with RVR (since 2016), and hx of CAD (s/p 4 drug-eluting stents, 11/2016) arriving to the ED due to a fall and found to have DKA and AFib with RVR. Admitted to ICU for DKA management & transferred to telemetry on 08/07 - Current Medication List Current Medications: Active Medications Diltiazem HCl (Cardizem Cd -) 120 mg PO DAILY [facility] Heparin Sodium (Porcine) (Heparin -) 1,000 unit IVPUSH PRN PRN PRN Reason: Heparin Heparin Sodium (Porcine) (Heparin -) 5,000 unit IVPUSH PRN PRN PRN Reason: Heparin HEPARIN SOD,PORK IN 0.45% NACL (Heparin-1/2ns 25,000 Units/500) 25,000 units in 500 mls @ 20 mls/hr IVPB TITR [facility]; Protocol Last Admin: 08/09/19 01:40 Dose: 1,150 unit/hr, 23 mls/hr Documented by: Insulin Aspart (Novolog Vial Sliding Scale -) 1 vial SQ ACHS [facility]; Protocol Last Admin: 08/09/19 06:21 Dose: 2 units Documented by: - Objective Vital Signs: Vital Signs Temperature 97 F L 08/09/19 06:58 Pulse Rate 103 H 08/09/19 06:58 Respiratory Rate 18 08/09/19 06:58 Blood Pressure 126/65 08/09/19 06:58 O2 Sat by Pulse Oximetry (%) 99 08/09/19 00:44 Labs: CBC, BMP 08/08/19 04:48 08/08/19 08:55 INR, PTT INR 1.53 (0.83-1.09) H 08/07/19 19:40 Problem List - Problems (1) DKA (diabetic ketoacidoses) Code(s): E11.10 - TYPE 2 DIABETES MELLITUS WITH KETOACIDOSIS WITHOUT COMA (2) BPH (benign prostatic hyperplasia) Code(s): N40.0 - BENIGN PROSTATIC HYPERPLASIA WITHOUT LOWER URINRY TRACT SYMP (3) Presence of stent in coronary artery in patient with coronary artery disease Code(s): I25.10 - ATHSCL HEART DISEASE OF [place] CORONARY ARTERY W/O ANG PCTRS; Z95.5 - PRESENCE OF CORONARY ANGIOPLASTY IMPLANT AND GRAFT (4) Prophylactic measure Code(s): Z29.9 - ENCOUNTER FOR PROPHYLACTIC MEASURES, UNSPECIFIED (5) Person under investigation for COVID-19 Code(s): Z20.828 - CONTACT W AND EXPOSURE TO OTH VIRAL COMMUNICABLE DISEASES
[2019-08-09 08:26] LABS: HEMATOCRIT 34.5 % (35.4-49); HEMOGLOBIN 11.3 GM/dL (11.7-16.9); MCH 30.9 pg (25.7-33.7); MCHC 32.8 g/dl (32.0-35.9); MEAN PLT VOLUME 10.3 fl (7.5-11.1); PLATELET COUNT 162 K/MM3 (134-434); RBC 3.67 M/mm3 (4.00-5.60); RDW 15.5 % (11.9-15.9); WHITE BLOOD COUNT 5.7 K/mm3 (4.0-10.0)
--- NOTE | 2019-08-09 10:32 | PN ---
Progress Note, Physician History of Present Illness: Pt seen/ examined chart is reviewed Transferred to my service as pt of Dr. Garza awake/ comfortable no complains offered. - Current Medication List Current Medications: Active Medications Diltiazem HCl (Cardizem Cd -) 120 mg PO DAILY [facility] Last Admin: 08/09/19 09:09 Dose: 120 mg Documented by: Heparin Sodium (Porcine) (Heparin -) 1,000 unit IVPUSH PRN PRN PRN Reason: Heparin Heparin Sodium (Porcine) (Heparin -) 5,000 unit IVPUSH PRN PRN PRN Reason: Heparin HEPARIN SOD,PORK IN 0.45% NACL (Heparin-1/2ns 25,000 Units/500) 25,000 units in 500 mls @ 20 mls/hr IVPB TITR [facility]; Protocol Last Admin: 08/09/19 01:40 Dose: 1,150 unit/hr, 23 mls/hr Documented by: Insulin Aspart (Novolog Vial Sliding Scale -) 1 vial SQ ACHS [facility]; Protocol Last Admin: 08/09/19 06:21 Dose: 2 units Documented by: Insulin Detemir (Levemir Vial) 10 units SQ HS KEO - Objective Vital Signs: Vital Signs Temperature 98 F 08/09/19 09:25 Pulse Rate 98 H 08/09/19 09:25 Respiratory Rate 18 08/09/19 09:25 Blood Pressure 135/70 08/09/19 09:25 O2 Sat by Pulse Oximetry (%) 99 08/09/19 09:00 Constitutional: Yes: No Distress, Calm Eyes: Yes: Conjunctiva Clear Neck: Yes: Supple Cardiovascular: Yes: Regular Rate and Rhythm Respiratory: Yes: CTA Bilaterally Gastrointestinal: Yes: Soft Edema: No Labs: CBC, BMP 08/09/19 06:15 08/08/19 08:55 INR, PTT INR 1.53 (0.83-1.09) H 08/07/19 19:40 Problem List - Problems (1) Acute renal failure Code(s): N17.9 - ACUTE KIDNEY FAILURE, UNSPECIFIED (3) DKA (diabetic ketoacidoses) Code(s): E11.10 - TYPE 2 DIABETES MELLITUS WITH KETOACIDOSIS WITHOUT COMA (4) Falls Code(s): W19.XXXA - UNSPECIFIED FALL, INITIAL ENCOUNTER Assessment/Plan Monitor on tele meds reviewed periods of Hypoglycemia Monitor on coverage for now continue other meds oob- chair f/u labs will need assistance for social services counselor Will follow
--- NOTE | 2019-08-09 12:49 | CON.NEP ---
Consult Consult Specialty:: nephrology - History of Present Illness Chief Complaint: fall History of Present Illness: 73 year old man with history of dm, htn, cad, s/p stents, who presented after a fall. He has elevated creatinine but he does not know of any kidney disease. Has bilateral knee pain and says he gets injections by ortho but does not take nsaids. Has no difficulty urinating - Past Medical History Cardio/Vascular: Yes: AFIB, CAD, HTN, Hyperlipdemia Endocrine: Yes: Diabetes Mellitus - Alcohol/Substance Use Hx Alcohol Use: No - Smoking History Smoking history: Never smoked Have you smoked in the past 12 months: No If you are a former smoker, when did you quit?: 20YRS AGO - Social History ADL: Independent History of Recent Travel: No Home Medications - Allergies Allergies/Adverse Reactions: Allergies Allergy/AdvReac Type Severity Reaction Status Date / Time No Known Drug Allergies Allergy Verified 10/05/14 14:32 - Home Medications Home Medications: Ambulatory Orders Aspirin [Ecotrin] 81 mg PO DAILY 10/05/14 Glipizide 10 mg PO DAILY 10/05/14 Lisinopril/Hydrochlorothiazide [Lisinopril-Hctz 20-25 mg Tab] 1 each PO DAILY 10/05/14 metFORMIN HCL [Metformin HCl ER] 1,000 mg PO DAILY 10/05/14 Levofloxacin [Levaquin] 500 mg PO DAILY #4 tablet 10/07/14 Oxycodone HCl/Acetaminophen [Percocet 5-325 mg Tablet] 2 combo PO Q4H PRN #10 tablet 10/07/14 levoFLOXacin 500 MG IVPB [Levaquin 500 mg Premixed Ivpb -] 500 mg IVPB DAILY #4 bag 10/07/14 Aspirin [ASA -] 81 mg PO DAILY 11/14/16 Glipizide Xl [Glucotrol Xl -] 10 mg PO DAILY@0700 11/14/16 Lisinopril/Hydrochlorothiazide [Lisinopril-Hctz 20-25 mg Tab] 1 tab PO DAILY 11/14/16 metFORMIN HCL [Metformin HCl ER] 1,000 mg PO DAILY 11/14/16 Review of Systems - Review of Systems Constitutional: reports: No Symptoms Eyes: reports: No Symptoms HENT: reports: No Symptoms Neck: reports: No Symptoms Cardiovascular: reports: No Symptoms Respiratory: reports: No Symptoms Gastrointestinal: reports: No Symptoms Genitourinary: reports: No Symptoms Breasts: reports: No Symptoms Reported Musculoskeletal: reports: Joint Swelling Integumentary: reports: No Symptoms Neurological: reports: No Symptoms Endocrine: reports: No Symptoms Hematology/Lymphatic: reports: No Symptoms Psychiatric: reports: No Symptoms Nephrology Consult - Height Height: 5 ft 6 in - Weight Weight: 179 lb - BMI Body Mass Index (BMI): 28.8 - Lab Results CBC,BMP: CBC, BMP 08/09/19 06:15 08/08/19 08:55 Anion Gap: Anion Gap Anion Gap 11 MMOL/L (8-16) 08/08/19 08:55 - Imaging Chest X-ray: Report Reviewed - Physical Examination Vital Signs: Vital Signs Temperature 98 F 08/09/19 09:25 Pulse Rate 98 H 08/09/19 09:25 Respiratory Rate 18 08/09/19 09:25 Blood Pressure 135/70 08/09/19 09:25 O2 Sat by Pulse Oximetry (%) 99 08/09/19 09:00 Constitutional: Yes: Well Nourished, No Distress Eyes: Yes: Conjunctiva Clear HENT: Yes: Atraumatic, Normocephalic, Other Neck: Yes: Supple Cardiovascular: Yes: Pulse Irregular Respiratory: Yes: Regular, Diminished Gastrointestinal: Yes: Normal Bowel Sounds Musculoskeletal: Yes: Joint Swelling (bilat knees are swollen and warm) Edema: No Peripheral Pulses WNL: No Neurological: Yes: Alert, Oriented Psychiatric: Yes: Alert, Oriented Assessment/Plan IMPRESSION probably has ckd TIKI improving- had prolonged hypotension and dehydration from hyperglycemia Had DKA and his gap has closed PLAN glucose control keep hydrated for now repeat labs evaluate knees check uric acid repeat labs today MV
[2019-08-09 15:00] LABS: BLOOD UREA NITROGEN 45.8 mg/dL (7-18); CALCIUM 7.9 mg/dL (8.5-10.1); CREATININE 1.6 mg/dL (0.55-1.3); POTASSIUM 4.7 mmol/L (3.5-5.1); URIC ACID 6.4 mg/dL (2.6-7.2)
--- NOTE | 2019-08-09 16:52 | PN ---
Progress Note, Physician History of Present Illness: seen and examined today in [facility]. no overnight events. no new complaints. states he is feeling better. Legs still feel weak. - Current Medication List Current Medications: Active Medications Diltiazem HCl (Cardizem Cd -) 120 mg PO DAILY [facility] Last Admin: 08/09/19 09:09 Dose: 120 mg Documented by: Heparin Sodium (Porcine) (Heparin -) 1,000 unit IVPUSH PRN PRN PRN Reason: Heparin Heparin Sodium (Porcine) (Heparin -) 5,000 unit IVPUSH PRN PRN PRN Reason: Heparin HEPARIN SOD,PORK IN 0.45% NACL (Heparin-1/2ns 25,000 Units/500) 25,000 units in 500 mls @ 20 mls/hr IVPB TITR [facility]; Protocol Last Admin: 08/09/19 01:40 Dose: 1,150 unit/hr, 23 mls/hr Documented by: Insulin Aspart (Novolog Vial Sliding Scale -) 1 vial SQ ACHS [facility]; Protocol Last Admin: 08/09/19 11:09 Dose: 2 units Documented by: - Objective Vital Signs: Vital Signs Temperature 98.9 F 08/09/19 14:10 Pulse Rate 93 H 08/09/19 14:10 Respiratory Rate 18 08/09/19 14:10 Blood Pressure 134/60 08/09/19 14:10 O2 Sat by Pulse Oximetry (%) 99 08/09/19 09:00 Constitutional: Yes: No Distress, Calm Eyes: Yes: Conjunctiva Clear, EOM Intact, PERRL HENT: Yes: Atraumatic, Normocephalic Neck: Yes: Supple, Trachea Midline Cardiovascular: Yes: Pulse Irregular, S1, S2. No: Bradycardia, Tachycardia, Bruit, JVD, Gallop, Murmur, Rub, S3, S4, Varicosities Respiratory: Yes: Regular, CTA Bilaterally. No: Rales, Rhonchi, Wheezes Gastrointestinal: Yes: Normal Bowel Sounds, Soft. No: Distention, Tenderness Musculoskeletal: Yes: Muscle Weakness Extremities: Yes: WNL Edema: Yes Peripheral Pulses WNL: Yes Peripheral Pulses: Left Doralis Pedis: 2+, Right Dorsalis Pedis: 2+ Neurological: Yes: Alert, Oriented Psychiatric: Yes: Alert, Oriented Labs: CBC, BMP 08/09/19 06:15 08/09/19 14:00 INR, PTT INR 1.53 (0.83-1.09) H 08/07/19 19:40 - ....Imaging Chest X-ray: Report Reviewed, Image Reviewed EKG: Report Reviewed, Image Reviewed Other: Report Reviewed, Image Reviewed (tele-Afib, HR adequately controlled) Assessment/Plan 73 year old man pmh HTN, DM, known Pafib with RVR dx 2017, CAD s/p stents 2017 at [facility], admitted with mechanical falls found to be hyperglycemic followed by hypoglycemic with NICO, afib with rvr. Pt was last seen by me >2 years ago. 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 currently states he is feeling better states his legs have been weak lately and this is why he fell. denies LOC or near syncope. no chest pain, sob, palpitations, pnd, orthopnea or LE edema. Paroxsymal atrial fibrillation with rvr -was on amio briefly due to hypotension, now off -HR now adequately controlled -receiving Diltiazem CD 120mg daily -received 2 doses of IV digoxin yesterday, hold further doses -cont diltiazem for now and uptitrate as needed for HR control as BP tolerates -IVF hydration as needed -transition to po eliquis, stop heparin -cont tele CAD with multiple prior stents 2017 at [facility] -clarify if on ASA at home -ideally would transition diltiazem to bblocker for both CAD and afib, however can be done later Leg weakness -PT evaluation Pt needs to establish outpatient cardiology care. He has not been seen in > 2 years. discussed with him and he agrees to fup as outpatient.
[2019-08-09] MEDS: APIXABAN 5 MG TABLET PO SCH ×2 (17:22→21:44)
[2019-08-09] MEDS ORDERED: INSULIN (LEVEMIR) 100 UNITS/ML UNITS SQ SCH (22:00)
[2019-08-10] MEDS: INSULIN SLIDING SCALE (NOVOLOG) 1 VIAL SQ SCH ×4 (06:18→21:10)
[2019-08-10 08:20] LABS: HEMATOCRIT 34.6 % (35.4-49); HEMOGLOBIN 11.3 GM/dL (11.7-16.9); LYMPH % 30.4 % (8-40); MCH 30.9 pg (25.7-33.7); MCHC 32.7 g/dl (32.0-35.9); MEAN CELL VOLUME 94.6 fl (80-96); MEAN PLT VOLUME 9.8 fl (7.5-11.1); MONO % 4.7 % (3.8-10.2); NEUT % 63.9 % (42.8-82.8); PLATELET COUNT 170 K/MM3 (134-434); RBC 3.65 M/mm3 (4.00-5.60); RDW 15.5 % (11.9-15.9)
[2019-08-10 08:37] LABS: ALBUMIN 2.2 g/dl (3.4-5.0); BILIRUBIN,TOTAL 0.8 mg/dL (0.2-1); BLOOD UREA NITROGEN 28.4 mg/dL (7-18); CALCIUM 7.6 mg/dL (8.5-10.1); CREATININE 1.1 mg/dL (0.55-1.3); POTASSIUM 4.1 mmol/L (3.5-5.1)
[2019-08-10] MEDS: APIXABAN 5 MG TABLET PO SCH ×2 (09:27→21:10)
--- NOTE | 2019-08-10 10:21 | PN ---
Progress Note, Physician History of Present Illness: Pt seen/ examined chart is reviewed awake/ comfortable no complains offered. sitting in chair. - Current Medication List Current Medications: Active Medications Apixaban (Eliquis -) 5 mg PO BID [facility] Last Admin: 08/10/19 09:27 Dose: 5 mg Documented by: Diltiazem HCl (Cardizem Cd -) 120 mg PO DAILY [facility] Last Admin: 08/10/19 09:27 Dose: 120 mg Documented by: Insulin Aspart (Novolog Vial Sliding Scale -) 1 vial SQ ACHS [facility]; Protocol Last Admin: 08/10/19 06:18 Dose: 2 units Documented by: - Objective Vital Signs: Vital Signs Temperature 98.6 F 08/10/19 09:01 Pulse Rate 115 H 08/10/19 09:01 Respiratory Rate 20 08/10/19 09:01 Blood Pressure 115/58 L 08/10/19 09:01 O2 Sat by Pulse Oximetry (%) 99 08/10/19 09:01 Constitutional: Yes: No Distress, Calm Neck: Yes: Supple Cardiovascular: Yes: Pulse Irregular. No: Regular Rate and Rhythm Respiratory: Yes: CTA Bilaterally Gastrointestinal: Yes: Soft Edema: No Labs: CBC, BMP 08/10/19 06:55 08/10/19 06:55 INR, PTT INR 1.53 (0.83-1.09) H 08/07/19 19:40 Problem List - Problems (1) Acute renal failure Code(s): N17.9 - ACUTE KIDNEY FAILURE, UNSPECIFIED (3) DKA (diabetic ketoacidoses) Code(s): E11.10 - TYPE 2 DIABETES MELLITUS WITH KETOACIDOSIS WITHOUT COMA (4) Falls Code(s): W19.XXXA - UNSPECIFIED FALL, INITIAL ENCOUNTER Assessment/Plan Stable better Renal function normalized continue other meds oob- chair will need assistance for healthcare social worker Will follow anticipate tomorrow
--- NOTE | 2019-08-10 15:35 | PN ---
Progress Note, Physician History of Present Illness: seen and examined in nad. feeling better. no overnight events. no new complaints. - Current Medication List Current Medications: Active Medications Apixaban (Eliquis -) 5 mg PO BID [facility] Last Admin: 08/10/19 09:27 Dose: 5 mg Documented by: Insulin Aspart (Novolog Vial Sliding Scale -) 1 vial SQ ACHS [facility]; Protocol Last Admin: 08/10/19 12:17 Dose: 6 units Documented by: Insulin Detemir (Levemir Vial) 5 units SQ HS [facility] Metoprolol Succinate (Toprol Xl -) 50 mg PO DAILY [facility] - Objective Vital Signs: Vital Signs Temperature 98.3 F 08/10/19 13:36 Pulse Rate 105 H 08/10/19 13:36 Respiratory Rate 18 08/10/19 13:36 Blood Pressure 122/46 L 08/10/19 13:36 O2 Sat by Pulse Oximetry (%) 99 08/10/19 09:01 Constitutional: Yes: No Distress, Calm Eyes: Yes: Conjunctiva Clear, EOM Intact HENT: Yes: Atraumatic, Normocephalic, Thrush Neck: Yes: Supple, Trachea Midline Cardiovascular: Yes: Tachycardia, Pulse Irregular, S1, S2. No: Bradycardia, Bruit, JVD, Gallop, Murmur, Rub, S3, S4, Varicosities Respiratory: Yes: Regular, CTA Bilaterally. No: Rales, Rhonchi, SOB, Wheezes Gastrointestinal: Yes: Normal Bowel Sounds, Soft. No: Distention, Tenderness Musculoskeletal: Yes: Muscle Weakness Extremities: Yes: WNL Edema: No Peripheral Pulses WNL: Yes Neurological: Yes: Alert, Oriented Psychiatric: Yes: Alert, Oriented Labs: CBC, BMP 08/10/19 06:55 08/10/19 06:55 INR, PTT INR 1.53 (0.83-1.09) H 08/07/19 19:40 - ....Imaging Chest X-ray: Report Reviewed, Image Reviewed EKG: Report Reviewed, Image Reviewed Other: Report Reviewed, Image Reviewed (tele-afib, hr mildly elevated at times) Assessment/Plan 73 year old man pmh HTN, DM, known Pafib with RVR dx 2017, CAD s/p stents [address] [facility], admitted with mechanical falls found to be hyperglycemic followed by hypoglycemic with NICO, afib with rvr. Pt was last seen by me >2 years ago. 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 currently states he is feeling better states his legs have been weak lately and this is why he fell. denies LOC or near syncope. no chest pain, sob, palpitations, pnd, orthopnea or LE edema. Paroxsymal atrial fibrillation with rvr -was on amio briefly in ICU due to hypotension, now off -HR now adequately controlled on average, at times above goal -stop diltiazem -start Toprol XL 50mg daily first dose now and titrate as needed for HR control as BP tolerates -po fluid hydration, IV if needed -cont eliquis -cont tele while admitted CAD with multiple prior stents [address] [facility] -clarify if on ASA at home -change diltiazem to toprol Leg weakness -PT evaluation Pt needs to establish outpatient cardiology care. He has not been seen in > 2 years. discussed with him and he agrees to fup as outpatient.
[2019-08-10] MEDS ORDERED: INSULIN (LEVEMIR) 100 UNITS/ML UNITS SQ SCH (22:00)
[2019-08-11] MEDS ORDERED: DOCUSATE SODIUM 100 MG CAPSULE (FP) PO PRN (06:31)
[2019-08-11] MEDS: INSULIN SLIDING SCALE (NOVOLOG) 1 VIAL SQ SCH ×3 (06:40→18:16)
[2019-08-11 07:45] LABS: HEMATOCRIT 37.6 % (35.4-49); HEMOGLOBIN 12.3 GM/dL (11.7-16.9); MCH 30.7 pg (25.7-33.7); MCHC 32.6 g/dl (32.0-35.9); MEAN CELL VOLUME 94.4 fl (80-96); PLATELET COUNT 184 K/MM3 (134-434); RBC 3.99 M/mm3 (4.00-5.60); RDW 15.2 % (11.9-15.9); WHITE BLOOD COUNT 6.4 K/mm3 (4.0-10.0)
[2019-08-11] MEDS ORDERED: PT OWN MED DRAWER 7, Y5N ONE (11:07)
[2019-08-11] MEDS: APIXABAN 5 MG TABLET PO SCH (11:11)
--- NOTE | 2019-08-11 11:15 | ECHO ---
Name: FEDJAYLINO, JERROD Exam:Adult Echocardiogram Study Date: 08/11/2019 10:08 AM Age: 73 yrs MMode/2D Measurements & Calculations IVSd: 1.2 cm Ao root diam: 2.9 cm LVIDd: 3.8 cm LA dimension: 4.1 cm LVIDs: 2.9 cm LVPWd: 1.3 cm LVPWs: 1.6 cm EDV(Teich): 60.1 ml ESV(Teich): 33.1 ml LVOT diam: 2.2 cm LAV (MOD-bp): 60.0 ml RV S Nicholas: 12.9 cm/sec Doppler Measurements & Calculations Ao V2 max: 140.1 cm/sec LV V1 max P.4 mmHg Ao max P.9 mmHg LV V1 max: 92.8 cm/sec HILLARY(V,D): 2.5 cm2 PA V2 max: 116.1 cm/sec Med Peak E' Nicholas: 4.6 cm/sec PA max P.5 mmHg Procedure Study Quality: Technically suboptimal. Left Ventricle The left ventricle is grossly normal size. There is mild concentric left ventricular hypertrophy. The left ventricular ejection fraction is normal. Ejection Fraction = 60-65%. Right Ventricle The right ventricle is grossly normal size. The right ventricular systolic function is grossly normal . Atria The left atrium is mildly dilated. Right atrial size is normal. Mitral Valve The mitral valve is grossly normal. There is no mitral regurgitation noted. Tricuspid Valve The tricuspid valve is not well visualized, but is grossly normal. No tricuspid regurgitation. Aortic Valve There is mild aortic sclerosis.;. No hemodynamically significant valvular aortic stenosis. No aortic regurgitation is present. Pulmonic Valve The pulmonic valve is not well seen, but is grossly normal. There is no pulmonic valvular regurgitati on. Great Vessels The aortic root is normal size. Pericardium/Pleura There is no pericardial effusion. Interpretation Summary LV: Normal size,mild LVH,normal systolic function,EF 60-65% RV: grossly normal LA; Mildly dilated Sclerotic aortic valve No significant valvular dysfunction. Terence Luis 08/11/2019 11:15 AM
--- NOTE | 2019-08-11 11:59 | DS ---
Physical Examination Vital Signs: Vital Signs Temperature 98.3 F 08/11/19 09:21 Pulse Rate 96 H 08/11/19 09:21 Respiratory Rate 18 08/11/19 09:21 Blood Pressure 110/50 L 08/11/19 09:21 O2 Sat by Pulse Oximetry (%) 98 08/10/19 21:00 Findings/Remarks: pt seen/ examined feels well no complains echo done today - reviewed. Constitutional: Yes: No Distress Neck: Yes: Supple Cardiovascular: No: Regular Rate and Rhythm, Bruit Respiratory: Yes: CTA Bilaterally Gastrointestinal: Yes: Soft Edema: No Neurological: Yes: Alert, Confusion Psychiatric: Yes: Alert Labs: CBC, BMP 08/11/19 06:00 08/10/19 06:55 Discharge Summary Problems reviewed: Yes Reason For Visit: DIABETIC KETOACIDOSIS,ALT MENTAL STATUS,ATRIAL FIB Current Active Problems Acute renal failure (Acute) Atrial fibrillation with RVR (Acute) BPH (benign prostatic hyperplasia) (Acute) Closed head injury (Acute) DKA (diabetic ketoacidoses) (Acute) Elevated beta-hydroxybutyrate (Acute) Falls (Acute) Lactic acidosis (Acute) Person under investigation for COVID-19 (Acute) Presence of stent in coronary artery in patient with coronary artery disease (Acute) Prophylactic measure (Acute) Hospital Course: 73 year old man pmh HTN, DM, known Pafib with RVR dx 2017, CAD s/p stents [address] [facility], admitted with mechanical falls Uncontrolled diabetes/ dka [facility] started on heparin drip diabetic meds held as went from hyper to hypo Also was in ARF -- resolved with fluids stable d/c home with close f/u with pmd and cardiology advised start on metformin Compliance issues meds reconcilled/ Prescribed as needed d/w Rn also Condition: Improved - Instructions - Home Medications Comprehensive Discharge Medication List: Ambulatory Orders metFORMIN HCL [Metformin ER Osmotic] 1,000 mg PO DAILY 10/05/14 Aspirin [ASA -] 81 mg PO DAILY 11/14/16 Atorvastatin Ca [Lipitor] 10 mg PO HS #30 tablet 08/11/19 Metoprolol Succinate [Toprol XL -] 50 mg PO DAILY tab.sr.24h 08/11/19
--- NOTE | 2019-08-11 14:03 | PN ---
Progress Note, Physician History of Present Illness: Pt seen and examined at bedside. He is awake and appears comfortable. He denies shortness of breath. - Current Medication List Current Medications: Active Medications Apixaban (Eliquis -) 5 mg PO BID [facility] Last Admin: 08/11/19 11:11 Dose: 5 mg Documented by: Docusate Sodium (Colace -) 100 mg PO BID PRN PRN Reason: CONSTIPATION Last Admin: 08/11/19 06:41 Dose: 100 mg Documented by: Insulin Aspart (Novolog Vial Sliding Scale -) 1 vial SQ ACHS [facility]; Protocol Last Admin: 08/11/19 12:16 Dose: 6 units Documented by: Insulin Detemir (Levemir Vial) 5 units SQ HS [facility] Last Admin: 08/10/19 21:11 Dose: 5 units Documented by: Metoprolol Succinate (Toprol Xl -) 50 mg PO DAILY [facility] Last Admin: 08/11/19 11:11 Dose: 50 mg Documented by: - Objective Vital Signs: Vital Signs Temperature 98.3 F 08/11/19 09:21 Pulse Rate 96 H 08/11/19 09:21 Respiratory Rate 18 08/11/19 09:21 Blood Pressure 110/50 L 08/11/19 09:21 O2 Sat by Pulse Oximetry (%) 100 08/11/19 09:00 Constitutional: Yes: Calm Eyes: Yes: Conjunctiva Clear HENT: Yes: Atraumatic Neck: Yes: Supple Cardiovascular: Yes: S1, S2 Respiratory: Yes: CTA Bilaterally Gastrointestinal: Yes: Soft Genitourinary: Yes: WNL Musculoskeletal: Yes: WNL Edema: No Neurological: Yes: Oriented Labs: CBC, BMP 08/11/19 06:00 08/10/19 06:55 INR, PTT INR 1.53 (0.83-1.09) H 08/07/19 19:40 Assessment/Plan Current Medications Generic Name Dose Route Start Last Admin Trade Name Freq PRN Reason Stop Dose Admin Apixaban 5 mg 08/09/19 16:48 08/11/19 11:11 Eliquis - PO 5 mg BID [facility] Administration Docusate Sodium 100 mg 08/11/19 06:31 08/11/19 06:41 Colace - PO 100 mg BID PRN Administration CONSTIPATION Insulin Aspart 1 vial 08/09/19 07:00 08/11/19 12:16 Novolog Vial Sliding Scale - SQ 6 units ACHS [facility]O Administration Protocol Insulin Detemir 5 units 08/10/19 22:00 08/10/19 21:11 Levemir Vial SQ 5 units HS [facility] Administration Metoprolol Succinate 50 mg 08/10/19 15:45 08/11/19 11:11 Toprol Xl - PO 50 mg DAILY [facility] Administration Laboratory Tests 08/07/19 23:50 Urine Protein Negative Urine Blood Negative Impression 1. TIKI 2. DM 3. a-fib 4. CAD 5. s/p fall 6. htn 7. DM Plan - renal function improved - will need outpt follow up - ua neg for blood or protein - avoid nephrotoxins
[2019-08-11 14:18] VITALS: BP 121/61; PULSE 125; TEMP 97.9
== END 2019-08-11 17:40 | disposition home or self-care (01) | DRG 638 ==
LOC: JER 18:32 → JERBED 21:40 → JICU 08-08 06:06 → J4S 08-08 23:03
PROVIDERS: ADMIT Internal Medicine; ATTEND Internal Medicine
DX: E11.10 Type 2 diabetes mellitus with ketoacidosis without coma (principal); N17.9 Acute kidney failure, unspecified; E87.2 Acidosis; I48.0 Paroxysmal atrial fibrillation; E11.65 Type 2 diabetes mellitus with hyperglycemia; I12.9 Hypertensive chronic kidney disease with stage 1 through stage 4 chronic kidney disease, or unspecified chronic kidney disease; E11.22 Type 2 diabetes mellitus with diabetic chronic kidney disease; N18.9 Chronic kidney disease, unspecified; E86.0 Dehydration; E11.649 Type 2 diabetes mellitus with hypoglycemia without coma; I95.9 Hypotension, unspecified; N40.0 Benign prostatic hyperplasia without lower urinary tract symptoms; I25.10 Atherosclerotic heart disease of native coronary artery without angina pectoris; Z95.5 Presence of coronary angioplasty implant and graft
CPT/HCPCS: 36415; 70450-TC; 71045-TC-FY; 72125-TC; 76775-TC; 80048; 80053; 80061; 80307; 81003; 82010; 82550; 82553; 82607; 82803; 82962; 83036; 83605; 83721; 83735; 84100; 84443; 84484; 84550; 85025; 85027; 85610; 85730; 87040; 87086; 93005; 93010; 93306-TC; 97116-GP; 97161-GP; 99291; J1644; U0003

== ENCOUNTER 2023-08-16 20:42 | Emergency (ER) | payer BC, OTHER ==
[2023-08-16] MEDS ORDERED: SODIUM CHLORIDE 1,000 ML IV SCH (21:15)
[2023-08-16 21:23] VITALS: TEMP 98.2; BMI 26.6
[2023-08-16 21:41] LABS: BASO % 0.3 % (0-2.0); EOS % 1.5 % (0-4.5); HEMATOCRIT 41.7 % (35.4-49); HEMOGLOBIN 14.1 GM/dL (11.7-16.9); MCH 31.7 pg (25.7-33.7); MCHC 33.9 g/dl (32.0-35.9); MEAN CELL VOLUME 93.6 fl (80-96); MEAN PLT VOLUME 8.2 fl (7.5-11.1); MONO % 4.6 % (3.8-10.2); NEUT % 83.6 % (42.8-82.8); PLATELET COUNT 222 10^3/uL (134-434); RBC 4.45 M/mm3 (4.00-5.60); WHITE BLOOD COUNT 11.7 K/mm3 (4.0-10.0)
[2023-08-16 21:48] LABS: ARTERIAL BLD GAS O2 SATURATION 97.4 % (95-98); ARTERIAL BLOOD GAS BASE EXCESS -4.4 mmol/L (-2-2); ARTERIAL BLOOD GAS PO2 94.5 mmHg (80-100); ARTERIAL BLOOD GAS pH 7.415 (7.350-7.450)
[2023-08-16 21:49] LABS: ALLENS TEST POSITIVE
[2023-08-16 21:50] LABS: INR 0.98 (0.83-1.09); PROTHROMBIN TIME (PATIENT) 11.1 SEC (9.7-13.0)
[2023-08-16 21:59] LABS: CHLORIDE 108 mmol/L (98-107); POTASSIUM 4.4 mmol/L (3.5-5.1); SODIUM 141 mmol/L (136-145)
[2023-08-16 22:01] LABS: CALCIUM 9.2 mg/dL (8.5-10.1)
[2023-08-16 22:02] LABS: ALBUMIN 3.7 g/dl (3.4-5.0); ANION GAP 11 mmol/L (4-13); BLOOD UREA NITROGEN 28.5 mg/dL (7-18); CO2 22 mmol/L (21-32); GLUCOSE,RANDOM 181 mg/dL (74-106)
[2023-08-16 22:04] LABS: CREATININE 1.5 mg/dL (0.55-1.3); SGOT/AST 17 U/L (15-37); SGPT/ALT 18 U/L (13-61)
[2023-08-16 22:06] LABS: CHOLESTEROL 192 mg/dL (50-200)
[2023-08-16 22:08] LABS: ALK PHOS 69 U/L (45-117); BILIRUBIN,TOTAL 0.7 mg/dL (0.2-1); HDL CHOLESTEROL 58 mg/dL (40-60); LDL CHOLESTEROL (ONLY SJRH) 114 mg/dL (5-100)
[2023-08-16 22:21] LABS: LACTIC ACID 5.4 mmol/L (0.4-2.0)
[2023-08-16 22:37] VITALS: BP 155/101; PULSE 105; RESP 18
== END 2023-08-16 22:37 | disposition short-term general hospital (02) ==
LOC: JER 20:42
DX: I63.9 Cerebral infarction, unspecified (principal); R29.810 Facial weakness; R41.82 Altered mental status, unspecified; I10 Essential (primary) hypertension
CPT/HCPCS: 36415; 36600; 70450-TC; 70496-TC; 70498-TC; 71045-TC-FY; 80053; 80061; 80307; 82010; 82375; 82550; 82803; 82962; 83036; 83605; 84484; 85025; 85610; 85730; 86850; 86900; 86901; 93005; 93010; 99285-25